=== PATIENT | female | born 1935 | race Caucasian/White ===

== ENCOUNTER 2016-05-27 20:46 | Emergency (ER) | payer MEDICARE ==
[~2016-05-27 20:46] MED LIST: LOSA50TA PO; METF1000 PO; METF500T PO; NEXI40CA PO; PARO20TA2 PO; PRED20 PO; SIMV20TA PO
[2016-05-27 20:57] VITALS: BP 187/79; PULSE 77; RESP 16; TEMP 97.9; O2SAT 97
[2016-05-27] MEDS ORDERED: MULT1TAB84 PO (22:21)
--- NOTE | 2016-05-27 23:11 | RADRPT ---
EXAM DATE/TIME: 05/27/2016 22:50 [facility] COMPARISON: SPINE CERVICAL LTD (AP&LAT), May 13, 2012, 20:54. INDICATIONS : Pain in Left heel. MEDICAL HISTORY : None. SURGICAL HISTORY : None. ENCOUNTER: Initial ACUITY: 2 days PAIN SCORE: 10/10 LOCATION: Left heel FINDINGS: Three view examination of the left foot demonstrates bony eburnation around the first metatarsal head and in the regions of the mid foot articulations. There is no acute fracture. Prominent calcaneal sp ur at the plantar aponeurosis with some calcification in the calcaneal attachment of the plantar apon eurosis as well as the Achilles tendon. A 5 mm calcific density projecting over the base of the later al metatarsals does not appear to be associated with the regional osseous structures and is probably in the adjacent soft tissues. CONCLUSION: 1. Scattered areas of bony eburnation, most prominent around the first metatarsal head. No acute frac ture. 2. Prominent calcaneal spur of the plantar aponeurosis with additional calcification at the calcaneal attachment of the plantar aponeurosis and the Achilles tendon. 3. 5 mm calcific density presumably in the adjacent soft tissues overlying the base of the lateral me tatarsals. This is well-circumscribed and overtly benign. Jim Friend MD on May 27, 2016 at 23:04 Board Certified Radiologist. This report was verified electronically.
--- NOTE | 2016-05-27 23:20 | PD ---
HPI Chief Complaint: Pain: Acute or Chronic Time Seen by Provider: 22:12 Travel History International Travel<30 days: No Contact w/Intl Traveler<30days: No Traveled to known affect area: No History of Present Illness HPI The patient is an 81 year old female who presents to the [facility] emergency department with a history of left foot pain that she reports is been present since yesterday. The patient reports that initially the pain was mild, however today the pain has been more severe and gradually worsening with time. She reports that she is unable to weight-bear on her foot. She reports that the pain is in the sole of the foot near the heel and arch. She denies having any trauma or fall. She denies having any redness or bruising. She denies having any fevers or chills. She reports that she does have some swelling in her ankles typically, however this is been better than usual recently. Of systems, the patient does report having chronic shortness of breath with exertion related to poor monetary fibrosis. She denies this being any worse than usual. She reports that she has been having difficulties with intermittent abdominal pain especially with eating. 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 She reports that later in the month air point in the stenting this artery. She denies any abdominal pain currently. The patient denies any recent fevers, cough, congestion, neck pain, chest pain, vomiting, diarrhea, urinary symptoms, or neurologic symptoms. [facility] Past Medical History Narrative Medical The patient's past medical history is significant for pulmonary fibrosis, arthritis, carpal tunnel syndrome status post carpal tunnel release, hypertension, diabetes mellitus, hyperlipidemia, acid reflux, depression. The patient has a history of colorectal cancer, history of melanoma. Arthritis: Yes Asthma: Yes Blood Disorders: No Heart Rhythm Problems: No Cancer: Yes (COLORECTAL CA (SURGERY, CHEMO, RADIATION), MELANOMA LEFT ARM(NO CHEMO/RAD)) Cardiovascular Problems: No High Cholesterol: Yes Chemotherapy: Yes (2006) Chest Pain: No Diabetes: Yes Patient Takes Glucophage: Yes (05/28/15 1000) Diminished Hearing: Yes Endocrine: Yes Gastrointestinal Disorders: Yes (ACID REFLUX, HX OF STOMACH ULCER) GERD: Yes Genitourinary: No Headaches: Yes (DUE TO NECK) Hepatitis: No Hiatal Hernia: No Hypertension: Yes Immune Disorder: No Implanted Vascular Access Dvce: Yes Musculoskeletal: Yes (ARTHRITIS, BACK/NECK PREVIOUS SURGERIES) Neurologic: Yes (NUMBNESS L ARM UP TO NECK) Psychiatric: Yes (CLAUSTROPHOBIC IN MRI) Reproductive: No Respiratory: Yes (PULMONARY FIBROSIS) Radiation Therapy: Yes (2006) Thyroid Disease: No Ulcer: Yes Tetanus Vaccination: < 5 Years Influenza Vaccination: Yes PNEUMOCCOCAL Vaccine (Year): 1 Menopausal: Yes Past Surgical History Narrative Surgical The patient's past surgical history is significant for bilateral cataract surgery, cholecystectomy, hysterectomy, right total knee replacement, skin cancer removal from the left arm, final surgery 4. Abdominal Surgery: Yes (PARTIAL COLON RESECTION 2008, CHOLECYSTECTOMY 2001) AICD: No Body Medical Devices: CERVICAL SPINE AND LOWER BACK HARDWARD, DENTAL IMPLANTS Cardiac Surgery: No Cholecystectomy: Yes Ear Surgery: No Endocrine Surgery: No Eye Surgery: Yes (JONATHAN. CATARACT EXTRACT.) Genitourinary Surgery: Yes (PARTIAL COLON RESECT.) Gynecologic Surgery: Yes (HYSTERECTOMY) Hysterectomy: Yes Joint Replacement: Yes (RIGHT KNEE) Neurologic Surgery: Yes (CERVICAL FUSION, LUMBAR DISC, SEVERAL NECK AND BACK SURGERIES) Oral Surgery: No Pacemaker: No Thoracic Surgery: No Tympanostomy Tube: Yes Other Surgery: Yes Social History Alcohol Use: Yes (OCCASIONAL) Tobacco Use: No (quit 30+years ago- cigs) Substance Use: No Allergies-Medications (Allergen,Severity, Reaction): Coded Allergies: Codeine (Verified Allergy, Severe, Nausea/Vomiting, 05/27/16) Contrast Media (Verified Allergy, Severe, HIVES, 05/27/16) Lortab (Verified Allergy, Severe, Itching, 05/27/16) Naproxen (Verified Allergy, Severe, GI UPSET, 05/27/16) *MDRO Multi-Drug Resistant Organism (Verified Allergy, Unknown, 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 Aspirin (Verified Adverse Reaction, Severe, Irritation, 05/27/16) PATIENT STATES SHE HAS ULCERS AND ASPIRIN UPSETS HER STOMACH Uncoded Allergies: AMALACTIN (Allergy, Intermediate, WHELPS, 06/23/13) Reported Meds & Prescriptions Reported Meds & Active Scripts Active Prednisone 20 Mg Tab 20 Mg PO BID 5 Days Start 02/09/16 Reported Multivitamin Adults (Multiple Vitamins W/ Minerals) 1 Tab 1 Tab PO DAILY Simvastatin 20 Mg Tab 20 Mg PO DAILY Nexium (Esomeprazole DR) 40 Mg Capdr 40 Mg PO DAILY Losartan (Losartan Potassium) 50 Mg Tab 50 Mg PO DAILY Paroxetine (Paroxetine HCl) 20 Mg Tab 20 Mg PO DAILY Metformin (Metformin HCl) 500 Mg Tab 500 Mg PO AC DINNER With meals Metformin (Metformin HCl) 1,000 Mg Tab 1,000 Mg PO DAILY With a meal Review of Systems Except as stated in HPI: all other systems reviewed are Neg General / Constitutional: No: Fever Eyes: No: Visual changes HENT: No: Headaches Cardiovascular: No: Chest Pain or Discomfort Respiratory: No: Shortness of Breath Gastrointestinal: No: Abdominal Pain Genitourinary: No: Dysuria Musculoskeletal: Positive: Arthralgias, Pain, Other (left foot pain) Skin: No Rash Neurologic: No: Weakness Psychiatric: No: Depression Endocrine: No: Polydipsia Hematologic/Lymphatic: No: Easy Bruising Physical Exam Narrative General: The patient is a well-developed well-nourished female in no acute distress. Head and Neck exam: Head is normocephalic atraumatic. Eyes: EOMI, pupils are equal round and reactive to light. Nose: Midline septum with pink mucous membranes Mouth: Dentition unremarkable. Moist mucus membranes. Posterior oropharynx is not erythematous. No tonsillar hypertrophy. Uvula midline. Airway patent. Neck: No palpable lymphadenopathy. No nuchal rigidity. No thyromegaly. Cardiovascular: Regular rate and rhythm without murmurs, gallops, or rubs. Lungs: Clear to auscultation bilaterally. No wheezes, rhonchi, or rales. Abdomen: Soft, without tenderness to palpation in all 4 quadrants of the abdomen. No guarding, rebound, or rigidity. Normal bowel sounds are audible. Extremities: No clubbing or cyanosis. The patient has trace pedal edema bilateral lower extremities along the ankles. She reports that this is improved compared to previously. 2+ pulses in all 4 extremities. The patient on examination of the area of interest, the left leg, the patient reports having tenderness on palpation along the left heel and plantar fascia with pain that worsens with stretching the toes up word, dorsiflexing the foot. There is no erythema or ecchymosis. No foot edema. She has intact sensation over all digits. Less than 3 second capillary refill. The patient has no pain on palpation of the left knee. With internal and external rotation of low left hip, the patient reports increased pain along the lateral aspect of the left hip. She reports that she does have chronic pain in her knees and hips, however this is slightly worse than usual. Back: No spinous process tenderness to palpation. No costovertebral angle tenderness to palpation. Neurologic Exam: Grossly nonfocal. Skin Exam: No rash noted. Intact skin that is warm and dry. Data Data Last Documented VS Vital Signs Date Time Temp Pulse Resp B/P Pulse Ox O2 Delivery O2 Flow Rate FiO2 05/27/16 23:36 62 18 174/74 99 Room Air 05/27/16 20:57 97.9 Orders Foot, Complete ([id number]) (05/27/16 22:38) Hip, Uni(Ap&Lat) W Ap Pelvis (05/27/16 23:17) Ice/Cold Pack (05/27/16 23:17) Tramadol (Ultram) (05/27/16 23:30) MDM Medical Decision Making Medical Screen Exam Complete: Yes Emergency Medical Condition: Yes Medical Record Reviewed: Yes Interpretation(s) Last Impressions Foot X-Ray 05/27/162237 Signed Impressions: Service Date/Time: Friday, May 27, 2016 22:50 - CONCLUSION: 1. Scattered areas of bony eburnation, most prominent around the first metatarsal head. No acute fracture. 2. Prominent calcaneal spur of the plantar aponeurosis with additional calcification at the calcaneal attachment of the plantar aponeurosis and the Achilles tendon. 3. 5 mm calcific density presumably in the adjacent soft tissues overlying the base of the lateral metatarsals. This is well-circumscribed and overtly benign. Jim Friend MD Differential Diagnosis Plantar fasciitis, versus heel spur, versus cellulitis, versus fracture Narrative Course During the course of the patients emergency department visit, the patients history, examination, and differential diagnosis were reviewed with the patient. The patient had an x-ray of the left foot, left hip and pelvis. The patient was given tramadol for pain. She reports that she has tolerated this well in the past. The patient reports that Tylenol at home was not helping. The patient was given an ice pack to decrease inflammation in the area. Radiology studies were reviewed and remarkable for a left hip x-ray that shows no acute abnormality other than degenerative changes. Left foot x-ray shows a large heel spur, evidence of degenerative changes, no acute fracture or abnormality otherwise. The patient was given a copy of her left foot x-ray findings. She was instructed to follow-up with her primary care physician as soon as possible regarding her symptoms for referral to physical therapy for additional treatment. She was instructed on rest, ice, stretching, and elevation of the area. The patient will be given a prescription for prednisone at discharge. Unfortunately, tramadol interacts with her home medications, therefore this will not be continued for outpatient treatment of her pain. The patient is resting comfortably and feels better, is alert and in no distress. The patients results and examination findings were discussed with the patient. The repeat examination is unremarkable and benign. The history, exam, diagnostic testing, and current condition do not suggest any significant pathology to warrant further testing, continued ED treatment, admission, or surgical evaluation at this point. The vital signs have been stable. The patient does not have uncontrollable pain, intractable vomiting, or other significant symptoms. The patient's condition is stable and appropriate for discharge. The patient will pursue further outpatient evaluation with a primary care physician or other designated or consulting physician as indicated in the discharge instructions. The patient expressed understanding and was agreeable with this plan. Diagnosis Primary Impression: Plantar fasciitis of left foot Additional Impressions: Heel spur Qualified Code: M77.32 - Heel spur, left Left foot pain Referrals: Sharron Kulkarni Jr., MD 2 days Patient Instructions: General Instructions, Plantar Fasciitis (ED) Med/Other Pt SpecificInfo: Prescription(s) given Scripts Prednisone 20 Mg Tab20 Mg PO BID 5 Days Ref 0 Start 02/09/16 Prov:Brianna Rodriguez MD 05/27/16 Disposition: 01 DISCHARGE HOME Condition: Stable Brianna Rodriguez MD May 27, 2016 23:20
[2016-05-27] MEDS ORDERED: traMADol HCL 50 MG TAB PO ONE (23:30)
[2016-05-27 23:36] VITALS: BP 174/74; PULSE 62; RESP 18; O2SAT 99
--- NOTE | 2016-05-27 23:50 | RADRPT ---
EXAM DATE/TIME: 05/27/2016 23:26 [facility] COMPARISON: No previous studies available for comparison. INDICATIONS : Left hip pain. MEDICAL HISTORY : SURGICAL HISTORY : None. ENCOUNTER: Initial ACUITY: 2 days PAIN SCORE: 0/10 LOCATION: Left hip FINDINGS: Examination of the left hip was performed with AP Pelvis. The primary and secondary trabecular patte rn of the femoral neck is intact. Osteoarthritic changes in both hips with some marginal spurring off the femoral head. Bony eburnation off the ischium and greater trochanter. Some scattered atheroscler otic calcification of the regional vasculature. CONCLUSION: 1. Degenerative osteoarthritic changes of the left hip. 2. No acute fracture.. Jim Friend MD on May 27, 2016 at 23:47 Board Certified Radiologist. This report was verified electronically.
[2016-05-27] MEDS ORDERED: PRED20 PO (23:54)
== END 2016-05-28 00:33 | disposition home or self-care (01) ==
LOC: NEPC 20:46
DX: M72.2 Plantar fascial fibromatosis (principal); M77.32 Calcaneal spur, left foot; J45.909 Unspecified asthma, uncomplicated; E78.00 Pure hypercholesterolemia, unspecified; E11.9 Type 2 diabetes mellitus without complications; K21.9 Gastro-esophageal reflux disease without esophagitis; I10 Essential (primary) hypertension; Z87.891 Personal history of nicotine dependence
CPT/HCPCS: 73502; 73630; 99283

== ENCOUNTER → 2016-06-02 | Outpatient (CLI) | payer MEDICARE ==
[~2016-06-02] MED LIST changes: +MULT1TAB84 PO; +PLAV75TA29 PO; +TRAM50TA PO
[2016-06-02 13:34] LABS: HEMATOCRIT 38.5 % (35.0-46.0); MEAN CORPUSCULAR HEMOGLOBIN 31.1 PG (27.0-34.0); MEAN CORPUSCULAR HGB CONC 33.8 % (32.0-36.0); PLATELET COUNT 341 TH/MM3 (150-450); RED BLOOD COUNT 4.19 MIL/MM3 (4.00-5.30); REVIEW FLAG FINAL; WHITE BLOOD COUNT 8.7 TH/MM3 (4.0-11.0)
[2016-06-02 13:43] LABS: PROTHROMBIN TIME - PATIENT 10.8 SEC (9.8-11.6)
[2016-06-02 13:45] LABS: BLOOD, URINE NEG (NEG); COMMENT (UR) CULTURE INDICATED; CULTURE IF INDICATED CULTURE INDICATED; GLUCOSE,URINE NEG (NEG); KETONE, URINE NEG (NEG); MUCUS URINE FEW /lpf (OCC); NITRITE,URINE NEG (NEG); PH, URINE 5.5 (5.0-8.5); SQUAMOUS EPITHELIAL CELL URINE 1 /hpf (0-5); URINE COLOR YELLOW (YELLW/STRAW)
[2016-06-02 13:56] LABS: BICARBONATE 28.2 MEQ/L (21.0-32.0); POTASSIUM 4.2 MEQ/L (3.5-5.1)
--- NOTE | 2016-06-02 15:00 | RADRPT ---
EXAM DATE/TIME: 06/02/2016 14:18 [facility] COMPARISON: CHEST PA & LAT, May 17, 2012, 11:17. INDICATIONS : Evaluate for communicable disease, Pneumonia, Pneumothorax, Preop Abdominal Surgery MEDICAL HISTORY : Pulmonary fibrosis SURGICAL HISTORY : None. ENCOUNTER: Initial ACUITY: 1 day PAIN SCORE: 0/10 LOCATION: Bilateral chest FINDINGS: The heart is minimally enlarged. Coarse interstitial changes are present in both lungs. The lungs a re moderately hyperinflated. Degenerative changes are present in the thoracic spine. CONCLUSION: Interval improvement when compared to the most recent comparison study. However, coarse interstitial changes are present in both lungs suggesting chronic fibrosis. Marco A Cedillo MD FACR on June 02, 2016 at 14:55 Board Certified Radiologist. This report was verified electronically.
--- NOTE | 2016-06-03 15:01 | EKG ---
Date Performed: 06/02/2016 Time Performed: 13:22:59 PTAGE: 81 years EKG: SINUS BRADYCARDIA POSSIBLE LEFT ATRIAL ENLARGEMENT Compared to prior tracing no significant change BORDERLINE ECG PREVIOUS TRACING 07/10/2014 @ 16.35.48 DOCTOR: Primitivo Edge Interpretating Date/Time 06/03/2016 14:58:15
== END ==
LOC: CPRE 12:39
PROVIDERS: ATTEND Surgery
DX: I77.1 Stricture of artery (principal); B96.89 Other specified bacterial agents as the cause of diseases classified elsewhere; R94.31 Abnormal electrocardiogram [ECG] [EKG]
CPT/HCPCS: 36415; 71020; 80048; 81001; 85027; 85610; 87086; 93005

== ENCOUNTER 2016-06-09 06:48 | Observation (INO) | payer MEDICARE ==
[2016-06-09] VITALS (11 sets, daily range): BP systolic 110–153; BP diastolic 54–69; PULSE 53–76; RESP 12–20; TEMP 97.8–98.3; O2SAT 95–100
[~2016-06-09] VITALS: Ht 165.1 cm; Wt 65.5 kg
[~2016-06-09 06:48] MED LIST changes: -PLAV75TA29 PO; -TRAM50TA PO
[2016-06-09] MEDS ORDERED: METOPROLOL TARTRATE 25 MG TAB PO PRN (07:45)
[2016-06-09] MEDS ORDERED: INSULIN HUMAN REGULAR 1,000 UNITS/10 ML VIAL SQ PRN (07:45)
[2016-06-09] MEDS ORDERED: POVIDONE IODINE 7.5% SCRUB 118 ML BOTTLE TOP SCH (08:00)
[2016-06-09] MEDS ORDERED: CHLORHEXIDINE GLUCONATE 4% SOLN 120 ML BTL TOP SCH (08:00)
[2016-06-09] MEDS ORDERED: SODIUM CHLORID 0.9% 500 ML IV SCH (08:00)
[2016-06-09] MEDS ORDERED: CHLORHEXIDINE GLUCONATE 2 % 1 PACK (2 CLOTHS) TOP ONE (08:00)
[2016-06-09 08:12] LABS: BACTERIA, URINE OCC /hpf; BLOOD, URINE NEG (NEG); COMMENT (UR) CULTURE INDICATED; CULTURE IF INDICATED CULTURE INDICATED; GLUCOSE,URINE NEG (NEG); HYALINE CAST, URINE 1 /lpf (RARE); KETONE, URINE NEG (NEG); MUCUS URINE FEW /lpf (OCC); NITRITE,URINE NEG (NEG); SQUAMOUS EPITHELIAL CELL URINE 1 /hpf (0-5); URINE COLOR YELLOW (YELLW/STRAW)
[2016-06-09] MEDS: LACTATED RINGER'S 1000 ML IV SCH (08:30)
--- NOTE | 2016-06-09 10:58 | PD.VS.PN ---
Pre-operative Note Pre-operative diagnosis: chronic mesenteric ischemia Planned procedure: mesenteric angiogram, possible stent via LEFT brachial cutdown Interval History: No changes since I saw her last - specifically, no fevers, chills or change in abdominal pain Labs: Hct 38 plt 341 creatinine 1.3 INR 1.0 Blood: none needed Imaging: CT reviewed - celiac patent; SMA stenotic Orders: NPO Cipro OCTOR Solumedrol OCTOR Post-operative destination: PACU and overnight observation Operative site marked: Yes Consent: Informed consent has been obtained from Joyce Mayer. I have explained the procedure in detail and discussed the risks, benefits, and potential complications. All questions have been answered. Patient contact information: Friend - Ms. Stinson [phone] Med Holman MD Jun 09, 2016 10:58
[2016-06-09] MEDS ORDERED: MIDAZOLAM HCL 2 MG/2 ML VIAL ONE (11:29)
[2016-06-09] MEDS ORDERED: FAMOTIDINE 20 MG/2 ML VIAL ONE (11:29)
[2016-06-09] MEDS ORDERED: HEPARIN SODIUM - IV 10,000 UNITS/10 ML VIAL ONE (11:40)
[2016-06-09] MEDS ORDERED: HEPARIN SODIUM - SQ 10,000 UNITS/ML VIAL ONE (11:40)
[2016-06-09] MEDS ORDERED: methylPREDNISolone SOD SUCC 125 MG/2 ML VIAL ONE (11:40)
[2016-06-09] MEDS ORDERED: PROTAMINE SULFATE 50 MG/5 ML VIAL ONE (11:40)
[2016-06-09] MEDS ORDERED: CIPROFLOXACIN 400 MG PREMIX 200 ML ONE (11:59)
[2016-06-09] MEDS ORDERED: PROPOFOL 200 MG/20 ML AMP IV ONE (12:00)
[2016-06-09] MEDS ORDERED: methylPREDNISolone SOD SUCC 125 MG/2 ML VIAL IV ONE (12:00)
[2016-06-09] MEDS ORDERED: ePHEDrine/NS 25 MG/5 ML SYR IV ONE (12:00)
[2016-06-09] MEDS ORDERED: LACTATED RINGER'S 1000 ML INJ 1,000 ML IV ONE (12:00)
[2016-06-09] MEDS ORDERED: NEOSTIGMINE 3 MG/3 ML SYR IV ONE (12:00)
[2016-06-09] MEDS ORDERED: diphenhydrAMINE HCL 50 MG/ML VIAL ONE (12:15)
[2016-06-09] MEDS ORDERED: BUPIVACAINE HCL PF 0.25% 30 ML VIAL ONE (12:39)
[2016-06-09] MEDS ORDERED: IOHEXOL 300 MG/ML 50 ML BTL (for RAD DIAG) OTHER ONE (12:47)
--- NOTE | 2016-06-09 13:45 | HHI.PR ---
Immediate Post Op Note Procedure Date: Jun 09, 2016 Pre Op Diagnosis: Chronic mesenteric ischemia Post Op Diagnosis: Chronic mesenteric ischemia Surgeon: Med Holman Photographic Processor(s): none Procedure: Mesenteric angiogram SMA stent (7x22 iCAST) Findings: SMA stenosis, successful stent Additional Information: L brachial exposure, strong L radial Doppler signal post-procedure Complications: none apparent Specimen(s) removed: none Estimated blood loss: 10 mL Anesthesia: General Drains: None Fluids: 300 mL IVF Patient to: PACU Patient Condition: Good Implant/Devices: SEE IMPLANT LOG (if applicable) Date/Time of Procedure: SEE SURGICAL CARE RECORD Med Holman MD Jun 09, 2016 13:45
[2016-06-09] MEDS ORDERED: DO NOT ADM ANY ANTICOAGULANT DRUGS XX PRN (13:50)
[2016-06-09] MEDS ORDERED: CLOPIDOGREL 75 MG TAB PO ONE (14:00)
[2016-06-09] MEDS ORDERED: fentaNYL CITRATE 250 MCG/5 ML AMP ONE (14:07)
--- NOTE | 2016-06-09 15:53 | PD.VS.PN ---
Subjective POD #: 0 Procedure(s): SMA stent Subjective/Hospital Course resting comfortably, no complaints, easily arousable Objective Vitals/I&O Date Time Temp Pulse Resp B/P Pulse Ox O2 Delivery O2 Flow Rate FiO2 06/09/16 15:13 100 Nasal Cannula 1.00 06/09/16 15:06 97.8 53 12 153/69 100 06/09/16 15:00 58 06/09/16 14:15 55 23 158/74 99 Nasal Cannula 3 06/09/16 14:00 60 23 157/74 100 Nasal Cannula 3 06/09/16 13:57 97.8 58 23 158/73 94 Nasal Cannula 3 06/09/16 08:06 97.9 65 20 133/62 98 06/09/16 06/09/16 06/09/16 07:00 15:00 23:00 Intake Total 300 ml Output Total 10 ml Balance 290 ml Exam: L UE incision c/d/i with minimal ecchymosis Pulses: palpable radial pulse Laboratory Laboratory Tests Test 06/09/16 07:40 Urine Color YELLOW Urine Turbidity HAZY Urine pH 6.0 Urine Specific [place] 1.012 Urine Protein TRACE Urine Glucose (UA) NEG Urine Ketones NEG Urine Occult Blood NEG Urine Nitrite NEG Urine Bilirubin NEG Urine Urobilinogen LESS THAN 2.0 Urine Leukocyte Esterase LARGE Urine RBC 1 Urine WBC 147 Urine Squamous Epithelial 1 Cells Urine Bacteria OCC Urine Hyaline Casts 1 Urine Mucus FEW Microscopic Urinalysis Comment CULTURE INDICATED Blood Type O POSITIVE Antibody Screen NEGATIVE Date/Time Procedure Status Source Growth 06/09/16 07:40 Urine Culture Received Urine Clean Catch Pending Assessment and Plan Plan observation overnight reg diet activity ad alka plavix load (150mg) Discharge Planning anticipate home tomorrow on reg medications plus plavix Med Holman MD Jun 09, 2016 15:53
[2016-06-09] MEDS ORDERED: metFORMIN HCL 500 MG TAB PO SCH (16:00)
[2016-06-10] VITALS (13 sets, daily range): BP systolic 131–135; BP diastolic 55–66; PULSE 52–80; RESP 16; TEMP 97.6–97.8; O2SAT 99
[2016-06-10] MEDS: LACTATED RINGER'S 1000 ML IV SCH (08:00)
[2016-06-10] MEDS ORDERED: PLAV75TA29 PO (08:48)
[2016-06-10] MEDS ORDERED: MULTIVITAMINS/MINERALS THERAPEUTIC TAB PO SCH (09:00)
[2016-06-10] MEDS ORDERED: LOSARTAN 50 MG TAB PO SCH (09:00)
[2016-06-10] MEDS ORDERED: PANTOPRAZOLE SOD 40 MG DELAYED RELEASE TAB PO SCH (09:00)
[2016-06-10] MEDS ORDERED: PARoxetine HCL 20 MG TAB PO SCH (09:00)
[2016-06-10] MEDS ORDERED: PRAVASTATIN SOD 40 MG TAB PO SCH (09:00)
[2016-06-10] MEDS ORDERED: metFORMIN HCL 500 MG TAB PO SCH (09:00)
--- NOTE | 2016-06-10 09:08 | PD.VS.DC ---
Discharge Summary Admission Date: Jun 09, 2016 at 13:48 Discharge Date: Jun 10, 2016 Admission Diagnosis: (1) Mesenteric artery insufficiency Discharge Diagnosis: (1) Mesenteric artery insufficiency Status: Chronic Brief History from admission Pt was admitted yesterday for stent placement of the mesenteric artery Procedure(s): SMA stent Significant Findings GENERAL: A&OX3, NAD, pleasant 83/F SKIN: Warm and dry. incision to left upper arm intact with surgical glue covering, NO redness, warmth, drainage or swelling noted, slight bruising noted near incision line CARDIOVASCULAR: +S1,S2 RESPIRATORY: Breath sounds equal bilaterally. No accessory muscle use. GASTROINTESTINAL: Abdomen soft, non-tender, nondistended Strong Palpable Bilat radial, DP Laboratory Tests Test 06/09/16 07:40 Urine Turbidity HAZY (CLEAR) Urine Leukocyte Esterase LARGE (NEG) Urine WBC 147 /hpf (0-5) Urine Bacteria OCC /hpf (NONE) Urine Mucus FEW /lpf (OCC) Hospital Course: Pt was admitted for SMA placement and was monitored overnight. Pt reported no complications and stated she has had D/B without complaints. Will continue to follow-up will pt in our OPC Allergies Coded Allergies Type Severity Reaction Last Updated Verified Codeine Allergy Severe Nausea/Vomiting 06/02/16 Yes Contrast Media Allergy Severe HIVES 06/02/16 Yes Lortab Allergy Severe Itching 06/02/16 Yes Naproxen Allergy Severe GI UPSET 06/02/16 Yes *MDRO Multi-Drug Resistant Organism Allergy Unknown 06/02/16 Yes Aspirin Adverse Reaction Severe Irritation 06/02/16 Yes Uncoded Allergies Type Severity Reaction Last Updated Verified AMALACTIN Allergy Intermediate WHELPS /06/03 06/08/173/19/173/20/173/20/173/21// 06:00 18:00 06:00 18:00 06:00 18:00 Intake Total 540 ml 240 ml Output Total 10 ml 350 ml Balance 530 ml -110 ml Intake Oral 240 ml 240 ml Other 300 ml Output Urine Total 350 ml Estimated Blood Loss 10 ml Other 0 ml # Voids 0 # Bowel Movements 0 Laboratory Tests Test 06/09/16 07:40 Urine Color YELLOW Urine Turbidity HAZY Urine pH 6.0 Urine Specific [place] 1.012 Urine Protein TRACE mg/dL Urine Glucose (UA) NEG mg/dL Urine Ketones NEG mg/dL Urine Occult Blood NEG Urine Nitrite NEG Urine Bilirubin NEG Urine Urobilinogen LESS THAN 2.0 MG/DL Urine Leukocyte Esterase LARGE Urine RBC 1 /hpf Urine WBC 147 /hpf Urine Squamous Epithelial 1 /hpf Cells Urine Bacteria OCC /hpf Urine Hyaline Casts 1 /lpf Urine Mucus FEW /lpf Microscopic Urinalysis Comment CULTURE INDICATED Blood Type O POSITIVE Antibody Screen NEGATIVE Procedure Category Date Status Time Urinalysis - C+S If LAB 06/09/16 Complete Indicated 07:14 Type And Screen BBK 06/09/16 Complete 07:14 Lactated Ringer's MED 06/09/16 In Process 1000 Ml Inj (Lr 1000 M 08:00 Sodium Chlorid 0.9% MED 06/09/16 Complete 500 Ml Inj (Ns 500 M 08:00 Insulin Human Regular MED 06/09/16 Complete Inj (Novolin R Inj 07:45 Metoprolol Tartrate MED 06/09/16 Complete (Lopressor) 07:45 Povidone Iodine 7.5% MED 06/09/16 In Process Scrub (Betadine 7.5 08:00 Chlorhexidine 4% Top MED 06/09/16 Complete Soln (Hibiclens 4% 08:00 Chlorhexidine 2% MED 06/09/16 Complete Cloth (Chlorhexidine 08:00 Urine Culture SURYA 06/09/16 In Process 07:40 Famotidine Inj MED 06/09/16 Complete (Pepcid Inj) 11:29 Midazolam Inj (Versed MED 06/09/16 Complete Inj) 11:29 Heparin Inj (Heparin MED 06/09/16 Complete Inj) 11:40 Heparin Inj (Heparin MED 06/09/16 Complete Inj) 11:40 Protamine Sulfate Inj MED 06/09/16 Complete (Protamine Sulfate 11:40 Methylprednisolone So MED 06/09/16 Complete Succ Inj (Solumedr 11:40 Ciprofloxacin 400 Mg MED 06/09/16 Complete Premix (Cipro 400 M 11:59 Diphenhydramine Inj MED 06/09/16 Complete (Benadryl Inj) 12:15 Bupivacaine Pf 0.25% MED 06/09/16 Complete Inj (Marcaine Pf 0. 12:39 Iohexol 300 Inj MED 06/09/16 Complete (Omnipaque 300 Inj) 12:47 Place In Observation ADMITTING 06/09/16 Transmitted Code Status CODE 06/09/16 Transmitted 13:46 Vital Signs (Adult) HALLEY 06/09/16 In Process 13:46 Activity Oob Ad Shae HALLEY 06/09/16 In Process 13:46 ^ Notify Dr. ROWLEY 06/09/16 In Process Parameters 13:46 Diet Heart Healthy DIET 06/09/16 Transmitted Lunch Clopidogrel (Plavix) MED 06/11/16 In Process 09:00 Clopidogrel (Plavix) MED 06/09/16 Complete 14:00 Losartan (Cozaar) MED 06/10/16 In Process 09:00 Metformin (Glucophage) MED 06/10/16 In Process 09:00 Metformin (Glucophage) MED 06/09/16 In Process 16:00 Multivitamins-Minerals MED 06/10/16 In Process Therap (Theragran 09:00 Paroxetine (Paxil) MED 06/10/16 In Process 09:00 Pantoprazole MED 06/10/16 In Process (Protonix) 09:00 Pravastatin MED 06/10/16 In Process (Pravachol) 09:00 Fentanyl Inj MED 06/09/16 Complete (Fentanyl Inj) 14:07 Enoxaparin Inj MED 06/10/16 In Process (Lovenox Inj) 13:00 [facility] 06[facility]16 In Process Information 13:50 Class V Pacu Ea 30 Min [facility] Complete General/Pacu [facility] 06/09/16 Complete Post Anesthesia [facility]xygen [facility] 06/09/16 Complete Sds Pre Op Care [facility] 06/09/16 Complete ^ Anticoagulant Alert HALLEY 06/10/16 In Process ^ Sling HALLEY 06/10/16 In Process Resp Oxygen Zachary C RSP 06/10/16 Logged Titrat 1-4 L Attending Discharge DISCHARGE 06/10/16 Transmitted Order Vital Signs Date Time Temp Pulse Resp B/P Pulse Ox O2 Delivery O2 Flow Rate FiO2 06/10/16 08:32 99 Room Air 06/10/16 08:32 97.6 66 16 131/66 99 06/10/16 08:32 58 06/10/16 07:30 97.6 68 16 131/66 99 06/10/16 06:00 59 06/10/16 05:06 59 06/10/16 04:11 56 06/10/16 03:30 97.8 76 16 135/55 99 06/10/16 03:05 56 06/10/16 02:36 56 06/10/16 01:00 57 06/10/16 00:36 52 06/09/16 23:06 98.3 57 16 110/54 99 06/09/16 23:06 62 06/09/16 22:00 59 06/09/16 21:00 54 06/09/16 20:00 62 06/09/16 19:45 Room Air 06/09/16 19:45 98.1 61 18 116/63 95 06/09/16 19:00 76 06/09/16 17:00 56 06/09/16 16:00 60 06/09/16 15:13 100 Nasal Cannula 1.00 06/09/16 15:06 97.8 53 12 153/69 100 06/09/16 15:00 58 06/09/16 14:15 55 23 158/74 99 Nasal Cannula 3 06/09/16 14:00 60 23 157/74 100 Nasal Cannula 3 06/09/16 13:57 97.8 58 23 158/73 94 Nasal Cannula 3 06/09/16 08:06 97.9 65 20 133/62 98 Discharge Condition: Good Discharge Disposition: Discharge Home Discharge Instructions: Follow-up in 1M in our OPC at scheduled appt time 07/11/16 Leave incision to LUE open to air Do not apply any ointments or creams to incision site Call the office with any questions or concerns Cristiana VARGAS [facility] [phone] Any questions or concerns: Call [facility] Heart and Vascular Surgery at [facility] [phone] Cristiana Dominique Jun 10, 2016 09:08
[2016-06-10] MEDS ORDERED: ENOXAPARIN SODIUM 40 MG/0.4 ML SYRINGE SQ SCH (13:00)
[2016-06-11] MEDS ORDERED: CLOPIDOGREL 75 MG TAB PO SCH (09:00)
--- NOTE | 2016-06-11 10:02 | MP ---
cc: RIN HOLMAN MD DATE OF SURGERY 06/09/16 PREOPERATIVE DIAGNOSIS Mesenteric ischemia, chronic. POSTOPERATIVE DIAGNOSIS Mesenteric ischemia, chronic. PROCEDURE 1. Mesenteric angiogram with selective catheterization of SMA. 2. SMA stent with a 7 x 22 iCast ATTENDING SURGEON Viviana Holman MD PROFESSIONAL SYSTEM ADMINISTRATOR None. ANESTHESIA General INDICATIONS Ms. Cooley is an 81 year old female with mesenteric ischemia that is chronic in nature. She has post prandial abdominal pain and CT scan suggestive of a mesenteric stenosis. She is taken to the operating room for angiographic evaluation and treatment. There is no prior catheter based imaging available for my review. PROCEDURE IN DETAIL Informed consent was obtained with the patient and she was taken to the operating room and placed supine on the operating room table and appropriate time out was taken to ensure the patient identity, operative site and planned procedure. 400 mg of intravenous ciprofloxacin were administered prior to skin incision, will be discontinue after single preoperative dose. Ciprofloxacin was chosen because of the patient's concomitant urinary tract infection which was new although asymptomatic. Everyone in the room agreed with the time-out and we proceeded. Her left arm was prepped and draped. An incision was made over the antecubital and carried down through the subcutaneous tissue with electrocautery. The brachial artery was identified and encircled with vessel loop. The patient was systemically heparinized with 3000 units of IV heparin. A micropuncture needle was used to access the brachial artery which was exchanged using Seldinger technique through a micropuncture sheath for which a 0.025 Glidewire was introduced. The micropuncture sheath was exchanged for 5 Portuguese sheath and a pigtail was placed over the wire into the sheath, then using the pigtail catheter and glide wire, we were able to navigate down to the perivisceral aorta. A lateral aortogram was obtained. The patient was administered 3000 additional units of IV heparin. A Green wire was then introduced. The pigtail and 5 Portuguese sheath were removed and a 7 Portuguese 70 cm sheath was introduced and an MPA catheter was placed over the Green and through the sheath. The Green was exchanged for a glide wire and this was used to navigate into the SMA and then catheter was advanced this and angiogram confirmed we were indeed in the SMA. A Green was then reintroduced and the MPA catheter was removed. A 7 x 22 [employer] iCast was then introduced and angiography was performed and the stent was deployed without difficulty. Completion angiogram showed only a 10 to 20% residual stenosis but not felt to be hemodynamically significant. The wire, catheter and sheath were removed. The brachial arteriotomy was closed with 6-0 Prolene suture. The wound was irrigated with copious amounts of saline. There was a nice palpable pulse at the wrist and the wound was infiltrated with Marcaine and closed with 2-0 Polysorb, 3-0 Polysorb and 4-0 Monocryl. Sponge and needle counts correct at the end of the case. I was present and scrubbed for entire procedure. MD MASTER De Jesus/ /3:58 PM /9:52 AM
== END 2016-06-10 09:56 | disposition home or self-care (01) ==
LOC: HCVO 06:48 → HSDI 13:48 → HCIN 15:00
PROVIDERS: ADMIT Surgery; ATTEND Surgery
DX: K55.1 Chronic vascular disorders of intestine (principal)
CPT/HCPCS: 01916; 36245; 37236; 75710; 81001; 86850; 86900; 86901; 87086; C1769; C1876; G0378; J0744; J1200; J1644; J2250; J2710; J2720; J2930; J3010; J7120; Q9967

== ENCOUNTER 2016-07-16 17:13 | Emergency (ER) | payer MEDICARE ==
[~2016-07-16] VITALS: Ht 165.1 cm; Wt 63.7 kg
[~2016-07-16 17:13] MED LIST changes: +PLAV75TA29 PO; -PRED20 PO
[2016-07-16 17:17] VITALS: BP 124/62; PULSE 78; RESP 18; TEMP 97.9; O2SAT 94
[2016-07-16] MEDS ORDERED: TRAM50TA PO (17:59)
--- NOTE | 2016-07-16 17:59 | PD ---
HPI Chief Complaint: Musculoskeletal Complaint Time Seen by Provider: 17:40 Travel History International Travel<30 days: No Contact w/Intl Traveler<30days: No Traveled to known affect area: No History of Present Illness HPI Patient is an 81-year-old female presenting to emergency department for evaluation of right arm pain. Patient's pain started on Thursday, there was no injury or trauma. Patient states her pain starts in her shoulder and radiates down her arm. She denies any chest pain, and headache, shortness of breath, back pain. Patient has a history of chronic neck pain, cervical stenosis. She reports taking tramadol which works for her but is out of her medication. Patient is followed by Dr. Sharron Olmstead. She reports the pain is a 4 out of 10 and describes as aching and sore. Patient denies any numbness, tingling, weakness. She is accompanied by her family member who does report that she is a reliable historian. 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)) Cardiovascular Problems: No High Cholesterol: Yes Chemotherapy: Yes (2006) Chest Pain: No Diabetes: Yes Patient Takes Glucophage: Yes Diminished Hearing: Yes Endocrine: Yes Gastrointestinal Disorders: Yes (ACID REFLUX, HX OF STOMACH ULCER) GERD: Yes Genitourinary: No Headaches: Yes (DUE TO NECK) Hepatitis: No Hiatal Hernia: No Hypertension: Yes Immune Disorder: No Implanted Vascular Access Dvce: Yes Medical other: No Musculoskeletal: Yes (ARTHRITIS, BACK/NECK PREVIOUS SURGERIES) Neurologic: Yes (NUMBNESS L ARM UP TO NECK) Psychiatric: Yes (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 CATARACT EXTRACT.) Genitourinary Surgery: Yes (PARTIAL COLON RESECT.) Gynecologic Surgery: Yes (HYSTERECTOMY) Hysterectomy: Yes Joint Replacement: Yes (RIGHT KNEE) Neurologic Surgery: Yes (CERVICAL FUSION, LUMBAR DISC, SEVERAL NECK AND BACK SURGERIES) Oral Surgery: No Pacemaker: No Thoracic Surgery: No Tympanostomy Tube: Yes Other Surgery: Yes Social History Alcohol Use: Yes (OCCASIONAL) Tobacco Use: No (quit 30+years ago- cigs) Substance Use: No Allergies-Medications (Allergen,Severity, Reaction): Coded Allergies: Codeine (Verified Allergy, Severe, Nausea/Vomiting, 07/16/16) Contrast Media (Verified Allergy, Severe, HIVES, 07/16/16) Lortab (Verified Allergy, Severe, Itching, 07/16/16) Naproxen (Verified Allergy, Severe, GI UPSET, 07/16/16) Aspirin (Verified Adverse Reaction, Severe, Irritation, 07/16/16) PATIENT STATES SHE HAS ULCERS AND ASPIRIN UPSETS HER STOMACH *MDRO Multi-Drug Resistant Organism (Verified Adverse Reaction, Unknown, ) 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 Uncoded Allergies: AMALACTIN (Allergy, Intermediate, WHELPS, 06/23/13) Reported Meds & Prescriptions Reported Meds & Active Scripts Active Reported Multivitamin Adults (Multiple Vitamins W/ Minerals) 1 Tab 1 Tab PO DAILY Simvastatin 20 Mg Tab 20 Mg PO DAILY Nexium (Esomeprazole DR) 40 Mg Capdr 40 Mg PO DAILY Losartan (Losartan Potassium) 50 Mg Tab 50 Mg PO DAILY Paroxetine (Paroxetine HCl) 20 Mg Tab 20 Mg PO DAILY Metformin (Metformin HCl) 500 Mg Tab 500 Mg PO AC DINNER With meals Metformin (Metformin HCl) 1,000 Mg Tab 1,000 Mg PO DAILY With a meal Review of Systems Except as stated in HPI: all other systems reviewed are Neg Musculoskeletal: Positive: Myalgias, Arthralgias Physical Exam Narrative GENERAL: Well-nourished, well-developed patient. SKIN: Focused skin assessment warm/dry. HEAD: Normocephalic. EYES: No scleral icterus. No injection or drainage. NECK: Supple, trachea midline. No JVD or lymphadenopathy. CARDIOVASCULAR: Regular rate and rhythm without murmurs, gallops, or rubs. RESPIRATORY: Breath sounds equal bilaterally. No accessory muscle use. GASTROINTESTINAL: Abdomen soft, non-tender, nondistended. MUSCULOSKELETAL: No cyanosis, or edema. No obvious deformity noted, positive radial pulse, brisk within 3 second capillary refill. Tenderness to palpation in right paraspinal musculature in the cervical region. 5/5 muscle strength in bilateral upper extremities. BACK: Nontender without obvious deformity. No CVA tenderness. Data Data Last Documented VS Vital Signs Date Time Temp Pulse Resp B/P Pulse Ox O2 Delivery O2 Flow Rate FiO2 07/16/16 17:17 97.9 78 18 124/62 94 [facility] Medical Decision Making Medical Screen Exam Complete: Yes Emergency Medical Condition: Yes Interpretation(s) Vital Signs Date Time Temp Pulse Resp B/P Pulse Ox O2 Delivery O2 Flow Rate FiO2 07/16/16 17:17 97.9 78 18 124/62 94 Differential Diagnosis Sprain versus strain versus fracture versus dislocation versus discogenic pain versus other Narrative Course Patient is an 81-year-old female presenting to the emergency department for evaluation of right arm pain, there was no defining injury or trauma. Patient is a reliable historian and there is no complaint of chest pain, shortness of breath, dizziness. Vital signs are stable. She normally takes tramadol for pain but is out of it. Patient will be provided with a prescription for tramadol, discussed with my attending physician who was in agreement. Patient will follow-up with her primary doctor for ongoing evaluation and management. Patient and family verbalized understanding of instructions, they were encouraged to return to emergency department for any new or worsening symptoms. Patient stable for discharge. Diagnosis Primary Impression: Neck pain, musculoskeletal Additional Impression: Arm pain, musculoskeletal Qualified Code: M79.601 - Arm pain, musculoskeletal, right Referrals: Sharron Kulkarni Jr., MD 2 days Patient Instructions: General Instructions, Muscle Strain (ED) Additional Instructions: Follow-up with her primary doctor Take medications as directed Continue range of motion exercises, apply warm moist heat to the affected area, avoid exacerbating activities Return to emergency department for any new or worsening symptoms Med/Other Pt SpecificInfo: Prescription(s) given Scripts Tramadol 50 Mg Tab50 Mg PO Q6H PRN (PAIN) #10 TAB Ref 0 Prov:Med Erazo MD 07/16/16 Disposition: 01 DISCHARGE HOME Condition: Stable LennyLyndsey chandraRaegan NEEDLE LOOM WEAVER Jul 16, 2016 17:59
== END 2016-07-16 18:07 | disposition home or self-care (01) ==
LOC: PHEFT 17:13
DX: M54.2 Cervicalgia (principal); M79.601 Pain in right arm; E11.9 Type 2 diabetes mellitus without complications; I10 Essential (primary) hypertension; E78.00 Pure hypercholesterolemia, unspecified; H91.90 Unspecified hearing loss, unspecified ear; Z79.84 Long term (current) use of oral hypoglycemic drugs; Z87.39 Personal history of other diseases of the musculoskeletal system and connective tissue; Z87.09 Personal history of other diseases of the respiratory system; Z85.038 Personal history of other malignant neoplasm of large intestine; Z85.828 Personal history of other malignant neoplasm of skin; Z87.19 Personal history of other diseases of the digestive system; Z86.69 Personal history of other diseases of the nervous system and sense organs
CPT/HCPCS: 99283

== ENCOUNTER 2017-02-05 12:27 | Emergency (ER) | payer MEDICARE ==
[~2017-02-05] VITALS: Ht 162.6 cm; Wt 70.0 kg
[~2017-02-05 12:27] MED LIST changes: -PLAV75TA29 PO; +TRAM50TA PO
[2017-02-05 12:29] VITALS: BP 181/79; PULSE 73; RESP 16; TEMP 98.1; O2SAT 98
[2017-02-05 12:59] VITALS: O2SAT 100
[2017-02-05] MEDS ORDERED: MULT1TAB46 PO (13:06)
[2017-02-05] MEDS ORDERED: PANTOPRAZOLE INJ 80 MG in SODIUM CHLORIDE 0.9% INJ 35 ML IV ONE (13:23)
[2017-02-05] MEDS ORDERED: PANTOPRAZOLE INJ 80 MG in SODIUM CHLORIDE 0.9% INJ 100 ML IV SCH (13:23)
[2017-02-05] MEDS ORDERED: SODIUM CHLOR 0.9% 1000 ML INJ 1,000 ML IV SCH (13:23)
[2017-02-05] MEDS ORDERED: SODIUM CHLORIDE 0.9% FLUSH 10 ML FLUSH IVF PRN (13:30)
--- NOTE | 2017-02-05 13:36 | PD ---
HPI . Dark tarry stools Chief Complaint: Bleeding Time Seen by Provider: 13:23 Travel History International Travel<30 days: No Contact w/Intl Traveler<30days: No Traveled to known affect area: No History of Present Illness HPI Patient presents with a chief complaint of dark tarry stools. Onset was yesterday. She has had a total of 2 stools. She reports associated nominal pain. That is she has been a problem for over a year. Has been no change in the character of her abdominal pain. In addition to the dark tarry stools, she is complaining of feeling tired, weak, shaky, cold and anorexic. All of those symptoms have started with normal last 24 hours or so. 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[place], HEARING AIDS) Endocrine: Yes Gastrointestinal Disorders: Yes (ACID REFLUX, HX OF STOMACH ULCER) GERD: Yes Genitourinary: No Headaches: Yes (DUE TO NECK) Hepatitis: No Hiatal Hernia: No Hypertension: Yes Immune Disorder: No Implanted Vascular Access Dvce: Yes Musculoskeletal: Yes (ARTHRITIS, BACK/NECK PREVIOUS SURGERIES) Neurologic: Yes (NUMBNESS L ARM UP TO NECK) Psychiatric: Yes (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 CATARACT EXTRACT.) Genitourinary Surgery: Yes (PARTIAL COLON RESECT.) Gynecologic Surgery: Yes (HYSTERECTOMY) Hysterectomy: Yes Joint Replacement: Yes (RIGHT KNEE) Neurologic Surgery: Yes (CERVICAL FUSION, LUMBAR DISC, SEVERAL NECK AND BACK SURGERIES) Oral Surgery: No Pacemaker: No Thoracic Surgery: No Tympanostomy Tube: Yes Other Surgery: Yes Social History Alcohol Use: Yes (OCCASIONAL) Tobacco Use: No (quit 30+years ago- cigs) Substance Use: No Allergies-Medications (Allergen,Severity, Reaction): Coded Allergies: acetaminophen (Unverified Allergy, Severe, Itching, 02/05/17) codeine (Unverified Allergy, Severe, Nausea/Vomiting, 02/05/17) diatrizoate meglumine (Unverified Allergy, Severe, HIVES, 02/05/17) gadobenic acid (Unverified Allergy, Severe, HIVES, 02/05/17) gadodiamide (Unverified Allergy, Severe, HIVES, 02/05/17) gadoteridol (Unverified Allergy, Severe, HIVES, 02/05/17) hydrocodone (Unverified Allergy, Severe, Itching, 02/05/17) iodixanol (Unverified Allergy, Severe, HIVES, 02/05/17) iohexol (Unverified Allergy, Severe, HIVES, 02/05/17) naproxen (Unverified Allergy, Severe, GI UPSET, 02/05/17) aspirin (Unverified Adverse Reaction, Severe, Irritation, 02/05/17) PATIENT STATES SHE HAS ULCERS AND ASPIRIN UPSETS HER STOMACH *MDRO Multi-Drug Resistant Organism (Verified Adverse Reaction, Unknown, 02/05/17) 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 Uncoded Allergies: AMALACTIN (Allergy, Intermediate, WHELPS, 06/23/13) Reported Meds & Prescriptions Reported Meds & Active Scripts Active Reported Multi Vitamin Daily (Multiple Vitamin) 1 Tab Tab 11 Tab PO DAILY Simvastatin 20 Mg Tab 20 Mg PO DAILY Nexium (Esomeprazole DR) 40 Mg Capdr 40 Mg PO DAILY Losartan (Losartan Potassium) 50 Mg Tab 50 Mg PO DAILY Paroxetine (Paroxetine HCl) 20 Mg Tab 20 Mg PO DAILY Metformin (Metformin HCl) 500 Mg Tab 500 Mg PO AC DINNER With meals Metformin (Metformin HCl) 1,000 Mg Tab 1,000 Mg PO DAILY With a meal Review of Systems Except as stated in HPI: all other systems reviewed are Neg General / Constitutional: Positive: Other (feels cold), No: Fever HENT: Positive: Lightheadedness Cardiovascular: No: Chest Pain or Discomfort Respiratory: No: Shortness of Breath Gastrointestinal: Positive: Abdominal Pain, Loss of Appetite Physical Exam Narrative GENERAL: Awake and alert and in no acute distress. SKIN: warm/dry. HEAD: Normocephalic. Atraumatic. EYES: Pupils equal and round. No scleral icterus. No injection or drainage. ENT: No nasal bleeding or discharge. Mucous membranes pink and moist. NECK: Trachea midline. Full range of motion without pain.. CARDIOVASCULAR: Regular rate and rhythm. RESPIRATORY: No accessory muscle use. Clear to auscultation. Breath sounds equal bilaterally. GASTROINTESTINAL: Abdomen soft. Diffusely tender with no guarding or rebound. Bowel sounds present. Nondistended. RECTAL: Stool is very dark. MUSCULOSKELETAL: No obvious deformities. NEUROLOGICAL: Awake and alert. No obvious cranial nerve deficits. Motor grossly within normal limits. Normal speech. PSYCHIATRIC: Appropriate mood and affect; insight and judgment normal. Data Data Last Documented VS Vital Signs Date Time Temp Pulse Resp B/P (MAP) Pulse Ox O2 Delivery O2 Flow Rate FiO2 02/05/17 12:59 16 Room Air 02/05/17 12:29 98.1 73 181/79 (113) 98 Orders Orders Complete Blood Count With Diff (02/05/17 13:23) Comprehensive Metabolic Panel (02/05/17 13:23) Prothrombin Time / Inr (Pt) (02/05/17 13:23) Act Partial Throm Time (Ptt) (02/05/17 13:23) Type And Screen (02/05/17 13:23) Ecg Monitoring (02/05/17 13:23) Iv Access Insert/Monitor (02/05/17 13:23) Oximetry (02/05/17 13:23) Sodium Chlor 0.9% 1000 Ml Inj (Ns 1000 M (02/05/17 13:23) Sodium Chloride 0.9% Flush (Ns Flush) (02/05/17 13:30) Sodium Chloride 0.9... W/Pantoprazole In (02/05/17 13:23) Sodium Chloride 0.9... W/Pantoprazole In (02/05/17 13:23) MDM Medical Decision Making Medical Screen Exam Complete: Yes Emergency Medical Condition: Yes Differential Diagnosis Differential diagnosis of abdominal pain includes but is not limited to gastritis, pancreatitis, hepatitis, gastroenteritis, gallbladder disease, constipation, urinary retention, UTI, peptic ulcer disease, diverticulitis or appendicitis Narrative Course Patient presents complaining of dark tarry stools. She also has diffuse abdominal pain. I have ordered IV Protonix bolus and drip. Routine abdominal labs have been ordered. HemaPrompt Point of Care Internal Pos. & Neg. Controls: Passed Fecal Specimen Occult Blood: Negative Shelbie Scott MD Feb 05, 2017 13:36
[2017-02-05 14:10] LABS: BASOPHIL % 0.9 % (0.0-2.0); EOSINOPHIL # 0.1 TH/MM3 (0-0.4); EOSINOPHIL % 1.3 % (0.0-4.0); HEMATOCRIT 36.9 % (35.0-46.0); HEMO FLAGS DIFF FINAL; LYMPH % 32.5 % (9.0-44.0); LYMPHOCYTE # 1.7 TH/MM3 (1.0-4.8); MEAN CELL VOLUME 94.2 FL (80.0-100.0); MONO % 6.5 % (0.0-8.0); NEUT % 58.8 % (16.0-70.0); PLATELET COUNT 281 TH/MM3 (150-450); RED BLOOD COUNT 3.92 MIL/MM3 (4.00-5.30); RED CELL DISTRIBUTION WIDTH 13.9 % (11.6-17.2); WHITE BLOOD COUNT 5.2 TH/MM3 (4.0-11.0)
[2017-02-05 14:20] LABS: APTT (PATIENT) 28.9 SEC (24.3-30.1)
[2017-02-05 14:24] LABS: ALT (GPT) 15 U/L (10-53); ANION GAP 8 MEQ/L (5-15); AST (GOT) 16 U/L (15-37); BICARBONATE 25.5 MEQ/L (21.0-32.0); BLOOD UREA NITROGEN 21 MG/DL (7-18); CHLORIDE 104 MEQ/L (98-107); GLOMERULAR FILTRATION RATE 37 ML/MIN (>89); POTASSIUM 4.1 MEQ/L (3.5-5.1); SODIUM (NA) 137 MEQ/L (136-145)
[2017-02-05 14:27] LABS: ALKALINE PHOSPHATASE 75 U/L (45-117); TOTAL BILIRUBIN ADULT 0.4 MG/DL (0.2-1.0)
--- NOTE | 2017-02-05 15:07 | PD ---
Physical Exam Date Seen by Provider: Feb 05, 2017 Time Seen by Provider: 15:05 Narrative 82-year-old female presents emergency department for evaluation of dark tarry stools that started just today. Patient has a total of 2 bowel movements that have been dark and tarry. She states she has minimal abdominal pain, no nausea or vomiting. Patient denies any fever, chills, shortness breath, malaise. Data Data Last Documented VS Vital Signs Date Time Temp Pulse Resp B/P (MAP) Pulse Ox O2 Delivery O2 Flow Rate FiO2 02/05/17 12:59 16 Room Air 02/05/17 12:29 98.1 73 181/79 (113) 98 Orders Orders Complete Blood Count With Diff (02/05/17 13:23) Comprehensive Metabolic Panel (02/05/17 13:23) Prothrombin Time / Inr (Pt) (02/05/17 13:23) Act Partial Throm Time (Ptt) (02/05/17 13:23) Type And Screen (02/05/17 13:23) Ecg Monitoring (02/05/17 13:23) Iv Access Insert/Monitor (02/05/17 13:23) Oximetry (02/05/17 13:23) Sodium Chlor 0.9% 1000 Ml Inj (Ns 1000 M (02/05/17 13:23) Sodium Chloride 0.9% Flush (Ns Flush) (02/05/17 13:30) Sodium Chloride 0.9... W/Pantoprazole In (02/05/17 13:23) Sodium Chloride 0.9... W/Pantoprazole In (02/05/17 13:23) Labs Laboratory Tests Test 02/05/17 13:50 White Blood Count 5.2 TH/MM3 Red Blood Count 3.92 MIL/MM3 Hemoglobin 12.6 GM/DL Hematocrit 36.9 % Mean Corpuscular Volume 94.2 FL Mean Corpuscular Hemoglobin 32.0 PG Mean Corpuscular Hemoglobin Concent 34.0 % Red Cell Distribution Width 13.9 % Platelet Count 281 TH/MM3 Mean Platelet Volume 7.8 FL Neutrophils (%) (Auto) 58.8 % Lymphocytes (%) (Auto) 32.5 % Monocytes (%) (Auto) 6.5 % Eosinophils (%) (Auto) 1.3 % Basophils (%) (Auto) 0.9 % Neutrophils # (Auto) 3.0 TH/MM3 Lymphocytes # (Auto) 1.7 TH/MM3 Monocytes # (Auto) 0.3 TH/MM3 Eosinophils # (Auto) 0.1 TH/MM3 Basophils # (Auto) 0.0 TH/MM3 CBC Comment DIFF FINAL Differential Comment Prothrombin Time 11.0 SEC Prothromb Time International Ratio 1.0 RATIO Activated Partial Thromboplast Time 28.9 SEC Blood Urea Nitrogen 21 MG/DL Creatinine 1.36 MG/DL Random Glucose 97 MG/DL Total Protein 7.5 GM/DL Albumin 3.4 GM/DL Calcium Level 8.9 MG/DL Alkaline Phosphatase 75 U/L Aspartate Amino Transf (AST/SGOT) 16 U/L Alanine Aminotransferase (ALT/SGPT) 15 U/L Total Bilirubin 0.4 MG/DL Sodium Level 137 MEQ/L Potassium Level 4.1 MEQ/L Chloride Level 104 MEQ/L Carbon Dioxide Level 25.5 MEQ/L Anion Gap 8 MEQ/L Estimat Glomerular Filtration Rate 37 ML/MIN MDM Supervised Visit with ANITRA: Yes Differential Diagnosis Differential diagnoses include but not limited to gastritis, GI bleed, diverticulitis, dark stools Narrative Course 82-year-old female presents emergency department for evaluation of dark tarry stools. Patient was evaluated by Dr. Scott prior to receiving a medical bed. Hemoccult was negative. CBC, CMP, PT/INR, type and screen were ordered. Blood work shows no acute abnormality. Patient reassessed by myself and asked if she recently took Pepto-Bismol or iron. Patient states that she started iron 2 days ago. Patient feels relieved that the dark story stools correlate with iron supplement. Patient will be instructed to continue iron supplement and discharged home with instructions to follow up with her primary care return to the emergency Department with any worsening condition. Diagnosis Primary Impression: Medication side effect Qualified Codes: T88.7XXA - Unspecified adverse effect of drug or medicament, initial encounter Referrals: Primary Care Physician Patient Instructions: General Instructions, Iron Supplements (By mouth), Moderate Sedation (ED) Additional Instruction: Please return to emergency department if your symptoms return or worsen. Follow up with your primary care provider. Continued to take iron as prescribed. Disposition: DISCHARGE HOME Condition: Stable Joanna George ALICIA Feb 05, 2017 15:07
== END 2017-02-05 15:51 | disposition home or self-care (01) ==
LOC: NEPD 12:27
DX: T88.7XXA Unspecified adverse effect of drug or medicament, initial encounter (principal); R19.5 Other fecal abnormalities; R53.1 Weakness; R10.9 Unspecified abdominal pain; R42 Dizziness and giddiness; M19.90 Unspecified osteoarthritis, unspecified site; J45.909 Unspecified asthma, uncomplicated; E11.9 Type 2 diabetes mellitus without complications; I10 Essential (primary) hypertension
CPT/HCPCS: 80053; 85025; 85610; 85730; 86850; 86900; 86901; 96365; 99284; C9113; J7030

== ENCOUNTER 2017-10-30 11:09 | Observation (INO) ==
--- NOTE | 2017-10-30 12:12 | ED ---
HPI General Chief complaint: Weakness Stated complaint: Hard time Breathing/CHUNG/Pain all over Time Seen by Provider: 10/30/17 11:57 Source: patient, family and RN notes reviewed Mode of arrival: wheelchair History of Present Illness HPI narrative: 82yF presenting with multiple complaints. The patient reports several years of full-body itchy rash; she has seen her PMD several times over the past 2 months, who initially told her to stop taking her metformin, then her simvastatin, to see if either of these were causing her rash. She also reports several months of full-body aches, chills, non-productive cough, and fatigue. She presents to the ED today because she's had generalized weakness for the past 4 days which is affecting her ability to take care of herself, diffuse chest pain and dyspnea both at rest and on exertion, and nausea. She also admits to malodorous urine. Related Data Home Medications Medication Instructions Recorded Confirmed esomeprazole magnesium [Nexium] 20 mg PO DAILY 10/30/17 10/30/17 losartan 50 mg PO DAILY 10/30/17 10/30/17 multivitamin,tx-minerals 1 cap PO DAILY 10/30/17 10/30/17 [Multi-Vitamin HP/Minerals] paroxetine HCl 20 mg PO DAILY 10/30/17 10/30/17 Allergies Allergy/AdvReac Type Severity Reaction Status Date / Time acetaminophen Allergy Severe Itching Unverified 10/30/17 12:25 codeine Allergy Severe Nausea/Vomi Unverified 10/30/17 12:25 ting diatrizoate meglumine Allergy Severe HIVES Unverified 10/30/17 12:25 gadobenic acid Allergy Severe HIVES Unverified 10/30/17 12:25 gadodiamide Allergy Severe HIVES Unverified 10/30/17 12:25 gadoteridol Allergy Severe HIVES Unverified 10/30/17 12:25 hydrocodone Allergy Severe Itching Unverified 10/30/17 12:25 iodixanol Allergy Severe HIVES Unverified 10/30/17 12:25 iohexol Allergy Severe HIVES Unverified 10/30/17 12:25 naproxen Allergy Severe GI UPSET Unverified 10/30/17 12:25 aspirin AdvReac Severe Irritation Unverified 02/05/17 13:03 AMALACTIN Allergy Intermediate WHELPS Uncoded 04/03/14 15:56 *MDRO Multi-Drug Resistant AdvReac Unknown Cough Uncoded 10/30/17 12:25 Organism Review of Systems ROS: all other systems reviewed are negative Constitutional Reports chills, Denies fever(s), Reports poor appetite and Reports weakness Eyes Denies blurry vision ENT Reports nasal congestion Cardiovascular Reports palpitations Respiratory Reports cough Gastrointestinal Reports nausea and Denies vomiting Genitourinary Comments: (+) malodorous urine Musculoskeletal Reports back pain, Reports myalgias and Reports arthralgias Integumentary/Breasts Reports rash Neurologic Reports confusion Psychiatric Reports confusion PMFSH History History Provided By: Patient Social History Social History Substance History: No History of Abuse Second Hand Smoke Exposure: No Smoking Status: Never smoker How Often Do You Have a Drink Containing Alcohol: Never Recent Travel in [facility] within the Last 8 Weeks: No Recent Out of Country Travel within the Last 8 Weeks: No Exam Const General: no acute distress and frail appearing HENMT Head: normocephalic and atraumatic Face and sinus: normal facial exam Other: Mucosa dry Eyes General: appearance normal, both eyes and all related structures Pupils: PERRL Chest Chest: normal inspection of the chest Resp Effort & Inspection: normal respiratory effort Auscultation: no rhonchi and no wheezes Cardio Rate: regular rate Rhythm: regular rhythm GI Other: Soft, non-distended, non-tender throughout Skin Other: Excoriated rash to bilateral feet Neuro General: alert, awake, oriented x3 and no focal motor deficits Other: Speech clear and fluent, no slurred speech or aphasia Motor strength 5/5 and sensation intact throughout No focal neuro deficits Psych Affect: normal affect Course Initial Documented Vital Signs Temperature 97.5 F L 10/30/17 11:17 Pulse Rate 77 10/30/17 11:17 Respiratory Rate 20 10/30/17 11:17 Blood Pressure 140/60 10/30/17 11:17 Pulse Oximetry 98 10/30/17 11:17 Last Documented Vital Signs Temperature 97.5 F L 10/30/17 11:17 Pulse Rate 55 L 10/30/17 13:50 Respiratory Rate 18 10/30/17 13:50 Blood Pressure 169/97 H 10/30/17 13:50 Pulse Oximetry 100 10/30/17 13:50 Clinical Decision Support HEART Score Questions History: Slightly suspicious EKG: Non-specific repolarization disturbance Age: 65 years+ Risk Factors: 3 or more Risk Factors or Hx of Atherosclerotic Disease Initial Troponin: Normal Limit Heart Score HEART Score: 5 Medical Decision Making [facility] Narrative Medical decision making narrative: Assessment: 82yF presenting with multiple complaints Plan: EKG and monitor Labs UA CXR CTH Addendum: No significant abnormalities noted on workup; however, the patient is diabetic, elderly, and a female which puts her at higher risk for atypical presentation of acute coronary syndrome. Her HEART score is 5. She will need further workup and cardiac monitoring. I explained these results and plan to the patient and her family, who understand and agree. Case discussed with Dr. Torrez of [facility]. Differential Diagnosis Differential Diagnosis: Differential diagnosis includes, but is not limited to: UTI, pneumonia, liver disease, electrolyte abnormality, anemia, dehydration, ACS Medical Records Medical records reviewed: Yes I reviewed the patient's medical records. Lab Data Lab results reviewed: Yes I reviewed the patient's lab results. Result diagrams: 10/30/17 12:10 10/30/17 12:10 Lab Results 10/30/17 10/30/17 10/30/17 Range/Units 12:10 12:10 12:10 CBC w Diff Auto diff final WBC 4.9 (4.0-11.0) th/mm3 RBC 3.93 L (4.00-5.30) mil/mm3 Hgb 12.7 (11.6-15.3) gm/dL Hct 37.8 (35.0-46.0) % MCV 96.2 (80.0-100.0) fL MCH 32.4 (27.0-34.0) pg MCHC 33.7 (32.0-36.0) % RDW 12.6 (11.6-17.2) % Plt Count 241 (150-450) th/mm3 MPV 7.1 (7.0-11.0) fL Neut % (Auto) 51.6 (16.0-70.0) % Lymph % (Auto) 35.8 (9.0-44.0) % [place] % (Auto) 7.6 (0.0-8.0) % Eos % (Auto) 4.2 H (0.0-4.0) % Baso % (Auto) 0.8 (0.0-2.0) % Neut # (Auto) 2.5 (1.8-7.7) th/mm3 Lymph # (Auto) 1.8 (1.0-4.8) th/mm3 [place] # (Auto) 0.4 (0.0-0.9) th/mm3 Eos # (Auto) 0.2 (0.0-0.4) th/mm3 Baso # (Auto) 0.0 (0.0-0.2) th/mm3 WBC Differential . Differential Comment . Sodium 140 (136-145) meq/L Potassium 3.9 (3.5-5.1) meq/L Chloride 106 (98-107) meq/L Carbon Dioxide 27.0 (21.0-32.0) meq/L Anion Gap 7 (5-15) meq/L BUN 18 (7-18) mg/dL Creatinine 1.40 H (0.50-1.00) mg/dL Estimated GFR 36 L (>89) mL/min Random Glucose 110 H (74-106) mg/dL Calcium 9.4 (8.5-10.1) mg/dL Total Bilirubin 0.4 (0.2-1.0) mg/dL AST 19 (15-37) U/L ALT 17 (10-53) U/L Alkaline Phosphatase 60 (45-117) U/L Troponin I Less than 0.02 L Cancelled (0.02-0.05) ng/mL Total Protein 7.4 (6.4-8.2) g/dL Albumin 3.0 L (3.4-5.0) g/dL Lipase 171 (73-393) U/L TSH 1.330 (0.358-3.740) uIU/mL Ur Collection Type Urine Color (Yellw/Straw) Urine Clarity (Clear) Urine pH (5.0-8.5) Ur Specific [place] (1.002-1.035) Urine Protein (Neg-Trace) mg/dL Urine Glucose (UA) (Negative) mg/dL Urine Ketones (Negative) mg/dL Urine Occult Blood (Negative) Urine Nitrate (Negative) Urine Bilirubin (Negative) Urine Urobilinogen (Less than 2) mg/dL Ur Leukocyte Esterase (Negative) Urine WBC (0-5) /hpf Ur Squamous Epith Cells (0-5) /hpf Ur Renal Epithelial Cell (None) /hpf Micro UA Comment Urine Culture Comments 10/30/17 Range/Units 13:20 CBC w Diff WBC (4.0-11.0) th/mm3 RBC (4.00-5.30) mil/mm3 Hgb (11.6-15.3) gm/dL Hct (35.0-46.0) % MCV (80.0-100.0) fL MCH (27.0-34.0) pg MCHC (32.0-36.0) % RDW (11.6-17.2) % Plt Count (150-450) th/mm3 MPV (7.0-11.0) fL Neut % (Auto) (16.0-70.0) % Lymph % (Auto) (9.0-44.0) % [place] % (Auto) (0.0-8.0) % Eos % (Auto) (0.0-4.0) % Baso % (Auto) (0.0-2.0) % Neut # (Auto) (1.8-7.7) th/mm3 Lymph # (Auto) (1.0-4.8) th/mm3 [place] # (Auto) (0.0-0.9) th/mm3 Eos # (Auto) (0.0-0.4) th/mm3 Baso # (Auto) (0.0-0.2) th/mm3 WBC Differential Differential Comment Sodium (136-145) meq/L Potassium (3.5-5.1) meq/L Chloride (98-107) meq/L Carbon Dioxide (21.0-32.0) meq/L Anion Gap (5-15) meq/L BUN (7-18) mg/dL Creatinine (0.50-1.00) mg/dL Estimated GFR (>89) mL/min Random Glucose (74-106) mg/dL Calcium (8.5-10.1) mg/dL Total Bilirubin (0.2-1.0) mg/dL AST (15-37) U/L ALT (10-53) U/L Alkaline Phosphatase (45-117) U/L Troponin I (0.02-0.05) ng/mL Total Protein (6.4-8.2) g/dL Albumin (3.4-5.0) g/dL Lipase (73-393) U/L TSH (0.358-3.740) uIU/mL Ur Collection Type Clean catch Urine Color Yellow (Yellw/Straw) Urine Clarity Clear (Clear) Urine pH 7.5 (5.0-8.5) Ur Specific [place] 1.010 (1.002-1.035) Urine Protein 30 H (Neg-Trace) mg/dL Urine Glucose (UA) Negative (Negative) mg/dL Urine Ketones Negative (Negative) mg/dL Urine Occult Blood Negative (Negative) Urine Nitrate Negative (Negative) Urine Bilirubin Negative (Negative) Urine Urobilinogen 0.2 (Less than 2) mg/dL Ur Leukocyte Esterase Small H (Negative) Urine WBC 6-8 H (0-5) /hpf Ur Squamous Epith Cells 0-5 (0-5) /hpf Ur Renal Epithelial Cell 1-5 H (None) /hpf Micro UA Comment Culture not ind Urine Culture Comments Culture not ind Imaging Data Radiologist's impression: Chest X-Ray 10/30/17 12:08 CONCLUSION: 1. Hazy perihilar and bibasilar opacities most characteristic of scarring and/ or fibrosis. 2. No new areas of consolidation to suggest pneumonia. Head CT 10/30/17 12:08 CONCLUSION: 1. 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 2. Nothing acute . ECG Data Attestation: I personally reviewed and interpreted this ECG as follows: Interpretation: Rate: 68 BPM Rhythm: Sinus with PACs [place]: Normal Intervals: Normal intervals, no blocks, QTc 450 ms Q waves: None T waves: Upright, no inversions ST segments: No elevations or depressions Impression: Non-specific EKG, premature atrial contractions, no significant changes as compared to EKG from 06/02/2016. Discharge Plan Discharge Disposition Patient Disposition: 30 Still Patient Discharge Condition Condition: Good Discharge Details Diagnosis: Chest pain, Weakness generalized Physicians Team ED Provider: Stefanie Martinez Primary Care Provider: Sharron Kulkarni Rxs /Orders / Referrals /Forms Prescriptions: No Action losartan 50 mg Tablet 50 mg PO DAILY RF: 0 paroxetine HCl 20 mg Tablet 20 mg PO DAILY RF: 0 esomeprazole magnesium [Nexium] 20 mg Capsule,Delayed Release(Dr/Ec) 20 mg PO DAILY RF: 0 multivitamin,tx-minerals [Multi-Vitamin HP/Minerals] Capsule 1 cap PO DAILY RF: 0 Status ED Status: With Doctor
[2017-10-30 12:23] LABS: Baso % (Auto) 0.8 % (0.0-2.0); Eos # (Auto) 0.2 th/mm3 (0.0-0.4); Eos % (Auto) 4.2 % (0.0-4.0); Hematocrit 37.8 % (35.0-46.0); Hemoglobin 12.7 gm/dL (11.6-15.3); Lymph # (Auto) 1.8 th/mm3 (1.0-4.8); Lymph % (Auto) 35.8 % (9.0-44.0); Mean Corpuscular HGB Conc 33.7 % (32.0-36.0); Mean Corpuscular Hemoglobin 32.4 pg (27.0-34.0); Mean Corpuscular Volume 96.2 fL (80.0-100.0); Mean Platelet Volume 7.1 fL (7.0-11.0); Mono # (Auto) 0.4 th/mm3 (0.0-0.9); Mono % (Auto) 7.6 % (0.0-8.0); Neut # (Auto) 2.5 th/mm3 (1.8-7.7); Neut % (Auto) 51.6 % (16.0-70.0); Platelet Count 241 th/mm3 (150-450); Red Blood Count 3.93 mil/mm3 (4.00-5.30); Red Cell Distribution Width 12.6 % (11.6-17.2); White Blood Count 4.9 th/mm3 (4.0-11.0)
[2017-10-30 12:32] LABS: Chloride 106 meq/L (98-107); Potassium 3.9 meq/L (3.5-5.1); Sodium 140 meq/L (136-145)
[2017-10-30 12:36] LABS: Anion Gap 7 meq/L (5-15); Calcium 9.4 mg/dL (8.5-10.1); Glucose,Random 110 mg/dL (74-106); Lipase 171 U/L (73-393)
[2017-10-30 12:37] LABS: Blood Urea Nitrogen 18 mg/dL (7-18)
--- NOTE | 2017-10-30 12:38 | XR ---
EXAM DATE: 10/30/2017 12:29 PM EDT AGE/SEX: 82 years / Female INDICATIONS: Cough, difficulty breathing, body aches. CLINICAL DATA: This is the patient's initial encounter. Patient reports that signs and symptoms have been present for 4 - 6 days and indicates a pain score of 8/10. MEDICAL/SURGICAL HISTORY: None. None. COMPARISON: [facility] [place], CHEST PA & LAT, 06/02/2016. . FINDINGS: A single AP erect portable view of the chest was obtained. The heart size is mildly prominent and the re is hazy opacity in the perihilar regions and both lung bases without significant change. There is no new confluent infiltrate or effusion. Scoliosis and osteopenia noted in the thoracic spine. There are degenerative changes in both shoulders. Atherosclerotic changes are present in the aorta. Multipl e overlying electrocardiogram leads are present. CONCLUSION: 1. Hazy perihilar and bibasilar opacities most characteristic of scarring and/or fibrosis. 2. No new areas of consolidation to suggest pneumonia. Electronically signed by: Layo Spring MD 10/30/2017 12:36 PM EDT
[2017-10-30 12:39] LABS: Alanine Aminotransferase 17 U/L (10-53); Aspartate Aminotransferase 19 U/L (15-37); Glomerular Filtration Rate 36 mL/min (>89)
[2017-10-30 12:41] LABS: Total Protein 7.4 g/dL (6.4-8.2)
[2017-10-30 12:42] LABS: Alkaline Phosphatase 60 U/L (45-117)
[2017-10-30] MEDS ORDERED: Sodium Chlor 0.9% Inj 500 ML IV.SIG ONE (12:45)
--- NOTE | 2017-10-30 13:10 | CT ---
EXAM DATE: 10/30/2017 1:01 PM EDT AGE/SEX: 82 years / Female INDICATIONS: Generalized weakness. Confusion. Evaluate for ICH. CLINICAL DATA: This is the patient's initial encounter. Patient reports that signs and symptoms have been present for 1 week and indicates a pain score of 8/10. MEDICAL/SURGICAL HISTORY: Diabetes. Fusion, cervical. RADIATION DOSE: 54.18 CTDI (mGy) COMPARISON: [facility], CT BRAIN W/O CONTRAST, 07/10/2014. . TECHNIQUE: CT of the head without contrast. Using automated exposure control and adjustment of the mA and/or kV according to patient size, radiation dose was kept as low as reasonably achievable to ob tain optimal diagnostic quality images. DICOM format image data is available electronically for revi ew and comparison. FINDINGS: Cerebrum: The ventricles are normal for age. Stable, moderately severe periventricular areas of dim inished attenuation. No evidence of midline shift, mass lesion, hemorrhage or acute infarction. No e xtraaxial fluid collections are seen. Posterior Fossa: The cerebellum and brainstem are intact. The 4th ventricle is midline. The cerebe llopontine angle is unremarkable. Extracranial: The visualized portion of the orbits is intact. Skull: The calvaria is intact. No evidence of skull fracture. CONCLUSION: 1. 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 2. Nothing acute . Electronically signed by: Jim Friend MD 10/30/2017 1:09 PM EDT
[2017-10-30 13:31] LABS: Bilirubin,Urine Negative (Negative); Clarity,Urine Clear (Clear); Color,Urine Yellow (Yellw/Straw); Glucose,Urine (UA) Negative (Negative); Leukocyte Esterase,Urine Small (Negative); Nitrite,Urine Negative (Negative); PH,Urine 7.5 (5.0-8.5); Urobilinogen,Urine 0.2 mg/dL (Less than 2)
[2017-10-30 13:36] LABS: Squamous Epithelial Cell,Urine 0-5 /hpf (0-5)
[2017-10-30] MEDS ORDERED: Bisacodyl 10 MG Supp RECTAL PRN (14:43)
[2017-10-30] MEDS: Sod Chloride 0.9% Inj 1,000 ML IV.CONT SCH (15:08)
--- NOTE | 2017-10-30 15:09 | P.HP ---
History of Present Illness Primary Care Physician: Sharron Kulkarni MD Chief Complaint: Generalized weakness and abdominal pain History of Present Illness: This is a pleasant 82-year-old female patient with a known medical history of GERD, diabetes, hypertension and hyperlipidemia who presented to the ED with multiple complaints. She states that over the past 4 days she has had increasingly generalized weakness, as well as diffuse abdominal pain, nausea as well as left-sided chest pain. She does state that she has been unable to eat secondary to the diffuse abdominal pain for the past few days. Patient does admit to intermittent bouts of constipation and diarrhea with intermittent specks of black in her stool. Last colonoscopy was [address] Gunderson, which was reportedly negative. She does report a history of colon cancer in the past. Patient also has complaints of headaches with shooting pains, intermittent dizziness and vertigo. Head CT on presentation was done and reviewed showing no acute findings, stable chronic changes. She does have a history of chronic back and neck pain including multiple previous surgeries. Patient states she has been having a hard time sleeping, has had to sleep in a recliner to get comfortable secondary to her chronic back and neck pain. She also complains of left-sided chest pain. Upon assessment and palpation, the left chest has obvious pain to palpation. All of these symptoms are likely musculoskeletal in nature. The pain is reportedly worse with different movements as well as changing in position. Patient characterizes the pain as sharp and shooting in nature, rating the pain a 5 out of 10 at its worst on pain scale. Denies ever having a cardiac stress test in the past. It should also be noted that the patient's PCP, Dr. Olmstead, just recently took her off metformin as well as simvastatin for complaints of skin rash. Patient reports that this rash has improved since these medications have been discontinued. - Diagnosis (1) Weakness generalized (2) Abdominal pain Review of Systems All other systems reviewed negative except as stated in HPI PMFSH - History History Provided By: Patient - Medical History Medical History: Medical History (Last Updated 10/30/17 @ 17:15 by Joanna Ortez) Mesenteric artery stenosis (Acute) HLD (hyperlipidemia) (Acute) Diabetes (Acute) Colon cancer H/O: hysterectomy Skin cancer - Surgical History Surgical History: Surgical History (Last Updated 10/30/17 @ 17:15 by Joanna Ortez) Hx of neck surgery Previous back surgery - Family History Family History: Family History (Last Updated 10/30/17 @ 17:15 by Joanna Ortez) Other No pertinent family history - Tobacco History Second Hand Smoke Exposure: No Tobacco Use In Past 30 Days: No Smoking Status: Never smoker - Alcohol History How Often Do You Have a Drink Containing Alcohol: Never - Substance Use History Substance History: No History of Abuse - Travel History Recent Travel in the [place] Within the Last 8 Weeks: No Recent Travel Out of the Country Within the Last 8 Weeks: No - Immunization History Tetanus Immunization: Unsure Hx Influenza Vaccine This Season: Yes Medications and Allergies Active Medications: Active Medications Al Hydroxide/Mg Hydroxide (Milk Of Magnesia Liq) 30 ml PO Q12H PRN PRN Reason: Mild Constipation Bisacodyl (Dulcolax Supp) 10 mg RECTAL DAILY PRN PRN Reason: SEVERE CONSITIPATION Sodium Chloride (Ns Inj) 1,000 mls @ 84 mls/hr IV.CONT .[id number] GERRY Last Admin: 10/30/17 15:08 Dose: 84 mls/hr Lactulose (Lactulose Liq) 30 ml PO DAILY PRN PRN Reason: SEVERE CONSITIPATION Ondansetron HCl (Zofran Inj) 4 mg IV.PUSH Q6H PRN PRN Reason: NAUSEA OR VOMITING Senna/Docusate Sodium (Radha-Colace) 1 tab PO BID [facility] Sennosides (Senokot) 17.2 mg PO Q12H PRN PRN Reason: Moderate Constipation Temazepam (Restoril) 15 mg PO HS PRN PRN Reason: INSOMNIA Allergies Allergy/AdvReac Type Severity Reaction Status Date / Time acetaminophen Allergy Severe Itching Unverified 10/30/17 12:25 codeine Allergy Severe Nausea/Vomi Unverified 10/30/17 12:25 ting diatrizoate meglumine Allergy Severe HIVES Unverified 10/30/17 12:25 gadobenic acid Allergy Severe HIVES Unverified 10/30/17 12:25 gadodiamide Allergy Severe HIVES Unverified 10/30/17 12:25 gadoteridol Allergy Severe HIVES Unverified 10/30/17 12:25 hydrocodone Allergy Severe Itching Unverified 10/30/17 12:25 iodixanol Allergy Severe HIVES Unverified 10/30/17 12:25 iohexol Allergy Severe HIVES Unverified 10/30/17 12:25 naproxen Allergy Severe GI UPSET Unverified 10/30/17 12:25 aspirin AdvReac Severe Rash Verified 10/30/17 15:11 AMALACTIN Allergy Intermediate WHELPS Uncoded 06/23/13 15:56 *MDRO Multi-Drug Resistant AdvReac Unknown Cough Uncoded 10/30/17 12:25 Organism Home Medications Medication Instructions Recorded Confirmed Type esomeprazole magnesium [Nexium] 20 mg PO DAILY 10/30/17 10/30/17 History losartan 50 mg PO DAILY 10/30/17 10/30/17 History multivitamin,tx-minerals 1 cap PO DAILY 10/30/17 10/30/17 History [Multi-Vitamin HP/Minerals] paroxetine HCl 20 mg PO DAILY 10/30/17 10/30/17 History Exam Vital signs: Vital Signs 10/30/17 11:17 10/30/17 12:38 10/30/17 13:08 Temperature 97.5 F L Pulse Rate 77 65 61 Respiratory Rate 20 20 Blood Pressure 140/60 169/97 H Pulse Oximetry 98 100 10/30/17 13:50 Temperature Pulse Rate 55 L Respiratory Rate 18 Blood Pressure 169/97 H Pulse Oximetry 100 Intake & Output 10/29/17 10/30/17 10/30/17 18:59 06:59 18:59 Weight 63 kg Narrative: GENERAL: Well-developed, well-nourished elderly female patient in [facility]. SKIN: Warm and dry. No rash. HEAD: Normocephalic. Atraumatic. EYES: Pupils equal and round. No scleral icterus. No injection or drainage. ENT: No nasal bleeding or discharge. Mucous membranes pink and moist. NECK: Supple. Trachea midline. CARDIOVASCULAR: Regular rate and rhythm. S1, S2 noted. No murmur appreciated. Obvious tenderness to left chest wall to palpation. RESPIRATORY: No accessory muscle use. Clear to auscultation. Breath sounds equal bilaterally. GASTROINTESTINAL: Abdomen soft, nondistended. Normoactive bowel sounds x4. Tenderness to right upper and lower quadrant. MUSCULOSKELETAL: No obvious deformities. Extremities without clubbing, cyanosis , or edema. NEUROLOGICAL: Awake and alert. No obvious cranial nerve deficits. Motor grossly within normal limits. 5/5 muscle strength in bilateral upper and lower extremities. Normal speech. PSYCHIATRIC: Appropriate mood and affect; insight and judgment normal. Results - Labs CBC & Chem 7: 10/30/17 12:10 10/30/17 12:10 Labs: Laboratory Results - last 24 hr 10/30/17 10/30/17 10/30/17 12:10 12:10 12:10 CBC w Diff Auto diff final WBC 4.9 RBC 3.93 L Hgb 12.7 Hct 37.8 MCV 96.2 MCH 32.4 MCHC 33.7 RDW 12.6 Plt Count 241 MPV 7.1 Neut % (Auto) 51.6 Lymph % (Auto) 35.8 [place] % (Auto) 7.6 Eos % (Auto) 4.2 H Baso % (Auto) 0.8 Neut # (Auto) 2.5 Lymph # (Auto) 1.8 [place] # (Auto) 0.4 Eos # (Auto) 0.2 Baso # (Auto) 0.0 WBC Differential . Differential Comment . Sodium 140 Potassium 3.9 Chloride 106 Carbon Dioxide 27.0 Anion Gap 7 BUN 18 Creatinine 1.40 H Estimated GFR 36 L Random Glucose 110 H Calcium 9.4 Total Bilirubin 0.4 AST 19 ALT 17 Alkaline Phosphatase 60 Troponin I Less than 0.02 L Cancelled Total Protein 7.4 Albumin 3.0 L Lipase 171 TSH 1.330 Ur Collection Type Urine Color Urine Clarity Urine pH Ur Specific [place] Urine Protein Urine Glucose (UA) Urine Ketones Urine Occult Blood Urine Nitrate Urine Bilirubin Urine Urobilinogen Ur Leukocyte Esterase Urine WBC Ur Squamous Epith Cells Ur Renal Epithelial Cell Micro UA Comment Urine Culture Comments 10/30/17 13:20 CBC w Diff WBC RBC Hgb Hct MCV MCH MCHC RDW Plt Count MPV Neut % (Auto) Lymph % (Auto) [place] % (Auto) Eos % (Auto) Baso % (Auto) Neut # (Auto) Lymph # (Auto) [place] # (Auto) Eos # (Auto) Baso # (Auto) WBC Differential Differential Comment Sodium Potassium Chloride Carbon Dioxide Anion Gap BUN Creatinine Estimated GFR Random Glucose Calcium Total Bilirubin AST ALT Alkaline Phosphatase Troponin I Total Protein Albumin Lipase TSH Ur Collection Type Clean catch Urine Color Yellow Urine Clarity Clear Urine pH 7.5 Ur Specific [place] 1.010 Urine Protein 30 H Urine Glucose (UA) Negative Urine Ketones Negative Urine Occult Blood Negative Urine Nitrate Negative Urine Bilirubin Negative Urine Urobilinogen 0.2 Ur Leukocyte Esterase Small H Urine WBC 6-8 H Ur Squamous Epith Cells 0-5 Ur Renal Epithelial Cell 1-5 H Micro UA Comment Culture not ind Urine Culture Comments Culture not ind - Imaging Impressions Chest X-Ray 10/30/17 12:08 CONCLUSION: 1. Hazy perihilar and bibasilar opacities most characteristic of scarring and/ or fibrosis. 2. No new areas of consolidation to suggest pneumonia. Head CT 10/30/17 12:08 CONCLUSION: 1. 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 2. Nothing acute . Caprini VTE Risk Assessment Caprini VTE Risk Assessment: Moderate/High Risk (score >= 2) Caprini Risk Assessment Model: Point Value = 1 Point Value = 2 Point Value = 3 Point Value = 5 Age 41-60 Minor surgery BMI > 25 kg/m2 Swollen legs Varicose veins or History of unexplained or recurrent spontaneous Oral contraceptives or hormone replacement Sepsis (< 1 month) Serious lung disease, including pneumonia (< 1 month) Abnormal pulmonary function Acute myocardial infarction Congestive heart failure (< 1 month) History of inflammatory bowel disease Medical patient at bed rest Age 61-74 Arthroscopic surgery Major open surgery (> 45 min) Laparoscopic surgery (> 45 min) Malignancy Confined to bed (> 72 hours) Immobilizing plaster cast Central venous access Age >= 75 History of VTE Family history of VTE Factor V Leiden Prothrombin [id number] Lupus anticoagulant Anticardiolipin antibodies Elevated serum homocysteine Heparin-induced thrombocytopenia Other congenital or acquired thrombophilia Stroke (< 1 month) Elective arthroplasty Hip, pelvis, or leg fracture Acute spinal cord injury (< 1 month) Prophylaxis Regimen: Total Risk Factor Score Risk Level Prophylaxis Regimen 0-1 Low Early ambulation 2 Moderate Order ONE of the following: *Sequential Compression Device (SCD) *Heparin 5000 units SQ BID 3-4 Higher Order ONE of the following medications: *Heparin 5000 units SQ TID *Enoxaparin/Lovenox 40 mg SQ daily (WT < 150 kg, CrCl > 30 mL/min) *Enoxaparin/Lovenox 30 mg SQ daily (WT < 150 kg, CrCl > 10-29 mL/min) *Enoxaparin/Lovenox 30 mg SQ BID (WT < 150 kg, CrCl > 30 mL/min) AND/OR *Sequential Compression Device (SCD) 5 or more Highest Order ONE of the following medications: *Heparin 5000 units SQ TID (Preferred with Epidurals) *Enoxaparin/Lovenox 40 mg SQ daily (WT < 150 kg, CrCl > 30 mL/min) *Enoxaparin/Lovenox 30 mg SQ daily (WT < 150 kg, CrCl > 10-29 mL/min) *Enoxaparin/Lovenox 30 mg SQ BID (WT < 150 kg, CrCl > 30 mL/min) AND *Sequential Compression Device (SCD) Assessment and Plan - Assessment (1) Weakness generalized Code(s): R53.1 - Weakness Status: Acute (2) Abdominal pain Code(s): R10.9 - Unspecified abdominal pain Status: Acute - Plan This is an 82-year-old female patient presenting with multiple complaints: Diffuse abdominal pain unknown etiology -Also reports of associated nausea and black stool. -Occult stool ordered. Will follow. -Hemoglobin on presentation 12.7/hematocrit 37.8. Stable. Will trend H&H. -Check iron studies. LFTs WNL. -Will check abdominal/pelvis CT. Follow. -Last colonoscopy [address] Sanchez. For now, will hold off on consult to gastroenterology until workup done regarding etiology. Acute kidney injury likely secondary to dehydration. -Creatinine 1.4/BUN 18/GFR 36. Will continue IV fluids. Monitor BMP. Atypical chest pain suspect secondary to musculoskeletal etiology -This is clearly musculoskeletal in nature. Patient has significant tenderness to palpation especially the left-sided chest. -Serial EKGs and serial troponins have been ordered for ruling out ACS purposes. Initial troponin flat. EKG reviewed showing no ST changes. -Chest x-ray reviewed showing no trauma. Does show some perihilar bibasilar opacities characteristic of scarring and fibrosis. -Patient has allergies to Tylenol and NSAIDs. Headache, dizziness and vertigo -Head CT on presentation is reportedly negative. There are chronic changes that are stable. No acute findings. -Supportive care with Meclizine. Symptoms have improved. Hypertension, chronic: Will continue home medications. Clonidine as needed. Monitor blood pressure trends. Type 2 diabetes mellitus, chronic: Patient was recently taken off of metformin by her PCP. Will place on Accu-Chek before meals at bedtime, sliding scale, cover as needed. Diabetic diet. DVT prophylaxis: SCDs. Hold chemical prophylaxis, with complaints of black stools.
[2017-10-30] MEDS ORDERED: Aluminum/Magnesium/Simethacone Susp 30 ML UDC PO PRN (17:18)
[2017-10-30] MEDS ORDERED: Dextrose 50% in Water 50 ML Vial IV.PUSH PRN (17:28)
--- NOTE | 2017-10-30 19:58 | CT ---
EXAM DATE: 10/30/2017 7:51 PM EDT AGE/SEX: 82 years / Female INDICATIONS: Epigastric pain. Nausea and vomiting. CLINICAL DATA: This is the patient's initial encounter. Patient reports that signs and symptoms have been present for 1 day and indicates a pain score of 5/10. MEDICAL/SURGICAL HISTORY: Carcinoma, colon. Diabetes. Mesenteric artery stenosis. Hysterectom y. Fusion, cervical. Fusion, lumbar. RADIATION DOSE: 8.13 CTDI (mGy) COMPARISON: POI, CTA ABDOMEN AND PELVIS, 10/22/2016. . TECHNIQUE: Multiple contiguous axial images were obtained through the abdomen. Images were obtained using multiple row detector helical technique. Using automated exposure control and adjustment of the mA and/or kV according to patient size, radiation dose was kept as low as reasonably achievable to o btain optimal diagnostic quality images. DICOM format image data is available electronically for rev iew and comparison. FINDINGS: Noncontrast appearance of the liver, spleen, pancreas, adrenal glands and kidneys within normal limit s. No obstruction seen of the gastrointestinal tract. Severe diverticulosis in the sigmoid colon but no evidence of diverticulitis or other acute inflammatory changes. No free fluid or free air. No lymphad enopathy. Atherosclerotic abdominal aorta again noted. Chronic interstitial changes are seen of the visualized lung bases. No perceptible acute infiltrate. No effusion. CONCLUSION: No acute abnormality demonstrated. Electronically signed by: Gopal Danielle MD 10/30/2017 7:57 PM EDT
[2017-10-30 21:21] LABS: Creatine Kinase 62 U/L (26-192)
[2017-10-30] MEDS: Senna/Docusate Sodium 8.6/50 MG Tablet PO SCH (22:59)
[2017-10-30] MEDS: Temazepam 15 MG Capsule PO PRN (22:59)
[2017-10-30] MEDS: Insulin NovoLOG Aspart Correctional Sugar Inj SQ SCH (23:02)
[2017-10-31 00:45] LABS: % Iron Saturation 42.7 % (20-50)
[2017-10-31] MEDS: Sod Chloride 0.9% Inj 1,000 ML IV.CONT SCH ×3 (02:58→13:41)
[2017-10-31 03:49] LABS: Troponin I 0.02 ng/mL (0.02-0.05)
--- NOTE | 2017-10-31 07:54 | ECG ---
Date Performed: 10/30/2017 Time Performed: 20:13:37 PTAGE: 82 years EKG: SINUS BRADYCARDIA POSSIBLE LEFT ATRIAL ENLARGEMENT PROLONGED QT INTERVAL ABNORMAL ECG PREVIOUS TRACING : 10/30/2017 11.37 DOCTOR: Michael Ennis Interpretating Date/Time 10/31/2017 07:53:56
[2017-10-31] MEDS: Insulin NovoLOG Aspart Correctional Sugar Inj SQ SCH ×4 (08:17→20:39)
[2017-10-31] MEDS: Senna/Docusate Sodium 8.6/50 MG Tablet PO SCH ×2 (08:18→20:40)
[2017-10-31] MEDS: Pantoprazole Sodium 20 MG DR Tablet PO SCH (08:18)
[2017-10-31] MEDS: Multivitamin/Minerals Therapeutic Tablet PO SCH (08:19)
[2017-10-31 08:44] LABS: Baso % (Auto) 0.6 % (0.0-2.0); Eos # (Auto) 0.3 th/mm3 (0.0-0.4); Eos % (Auto) 5.7 % (0.0-4.0); Hematocrit 38.2 % (35.0-46.0); Hemoglobin 12.9 gm/dL (11.6-15.3); Lymph # (Auto) 2.2 th/mm3 (1.0-4.8); Lymph % (Auto) 40.7 % (9.0-44.0); Mean Corpuscular HGB Conc 33.8 % (32.0-36.0); Mean Corpuscular Volume 94.6 fL (80.0-100.0); Mean Platelet Volume 7.6 fL (7.0-11.0); Mono # (Auto) 0.4 th/mm3 (0.0-0.9); Mono % (Auto) 6.5 % (0.0-8.0); Neut # (Auto) 2.6 th/mm3 (1.8-7.7); Neut % (Auto) 46.5 % (16.0-70.0); Platelet Count 270 th/mm3 (150-450); Red Blood Count 4.04 mil/mm3 (4.00-5.30); Red Cell Distribution Width 13.5 % (11.6-17.2); White Blood Count 5.5 th/mm3 (4.0-11.0)
--- NOTE | 2017-10-31 09:17 | ECG ---
Date Performed: 10/30/2017 Time Performed: 11:37:44 PTAGE: 82 years EKG: Sinus rhythm WITH OCCASIONAL SUPRAVENTRICULAR PREMATURE COMPLEXES MODERATE INTRAVENTRICULAR CONDUCTION DELAY MONIQUE [facility] ECG INTERPRETATION BASED ON A DEFAULT AGE OF 40 YEARS PREVIOUS TRACING : 06/02/2016 13.22 DOCTOR: Michael Ennis Interpretating Date/Time 10/31/2017 09:16:50
--- NOTE | 2017-10-31 12:19 | ECG ---
Date Performed: 10/31/2017 Time Performed: 02:13:48 PTAGE: 82 years EKG: SINUS BRADYCARDIA PROLONGED QT INTERVAL ABNORMAL ECG PREVIOUS TRACING : 10/30/2017 20.13 DOCTOR: Michael Ennis Interpretating Date/Time 10/31/2017 12:19:03
--- NOTE | 2017-10-31 14:35 | P.PN ---
Subjective Interval history: 82-year-old female who is seen and examined in follow-up for abdominal pain, chest pain, dark colored stools, intermittent constipation. Patient states that she is feeling better today. Her pain is significantly improved. However she states that she still having dark colored stools. Patient indicates that she can feel her heart racing periodically. Vital signs are stable, patient remains afebrile. Physical Exam Vital signs: Vital Signs 10/30/17 15:28 10/30/17 16:00 10/30/17 20:00 Temperature 97.3 F L 96.7 F L Pulse Rate 59 L 71 53 L Respiratory Rate 18 18 18 Blood Pressure 160/80 H 182/70 H 151/67 H Pulse Oximetry 100 96 10/31/17 00:00 10/31/17 06:20 10/31/17 07:52 Temperature 96.7 F L 96.2 F L Pulse Rate 52 L 53 L 54 L Respiratory Rate 18 20 Blood Pressure 125/62 132/62 Pulse Oximetry 96 96 10/31/17 08:00 10/31/17 11:29 Temperature 96.4 F L Pulse Rate 63 58 L Respiratory Rate 20 Blood Pressure 130/64 Pulse Oximetry 96 Intake & Output 10/30/17 10/31/17 10/31/17 18:59 06:59 18:59 Intake Total 480 / 480 1740 / 1740 1000 / 1000 Balance 480 / 480 1740 / 1740 1000 / 1000 Weight 63 kg 63.2 kg Intake: IV 1500 / 1500 1000 / 1000 NS Inj 1,000 ML @ 84 mls/hr IV. 1000 / 1000 1000 / 1000 CONT .[id number] GERRY Rx#: [id number] NS Inj 500 ML @ Wide Open IV. 500 / 500 SIG BOLUS ONE Rx#:[id number] Oral 480 / 480 240 / 240 Other: # Voids 2 4 Date of Last Bowel Movement 10/31/17 # Bowel Movements 1 Narrative: GENERAL: Well-developed, well-nourished, in no acute distress. alert and orientated HEENT: Head is normocephalic without any lesions or masses noted. Facial features are symmetric. Eyes: Extraocular muscles are intact. Conjunctivae were clear. NECK: Supple without any masses. Trachea midline no deviation. No JVD, CARDIAC: Regular rhythm, regular rate. S1/S2 are heard. No murmurs gallops or rubs. LUNGS: Clear to auscultation bilaterally. No wheeze, rhonchi or rales. No use of accessory muscles on inspiration or expiration. ABDOMEN: Soft, nontender. Nondistended. Bowel sounds heard in all 4 quadrants. No organomegaly or masses. Negative rebound, negative guarding EXTREMITIES: No edema, pulses are equal bilaterally. No cyanosis or clubbing NEUROLOGY: Mood and affect appear appropriate. Cranial nerves II through XII grossly intact. Moving all extremities, speech is clear Results - Labs CBC & Chem 7: 10/31/17 08:22 10/30/17 12:10 Laboratory Results - last 24 hr 10/30/17 10/30/17 10/30/17 17:10 20:15 20:15 CBC w Diff WBC RBC Hgb Hct MCV MCH MCHC RDW Plt Count MPV Neut % (Auto) Lymph % (Auto) [place] % (Auto) Eos % (Auto) Baso % (Auto) Neut # (Auto) Lymph # (Auto) [place] # (Auto) Eos # (Auto) Baso # (Auto) WBC Differential Differential Comment POC Glucose 84 Iron 89 TIBC 209 L % Saturation 42.7 Total Creatine Kinase 62 Troponin I Less than 0.02 L 10/30/17 10/31/17 10/31/17 22:58 03:14 08:15 CBC w Diff WBC RBC Hgb Hct MCV MCH MCHC RDW Plt Count MPV Neut % (Auto) Lymph % (Auto) [place] % (Auto) Eos % (Auto) Baso % (Auto) Neut # (Auto) Lymph # (Auto) [place] # (Auto) Eos # (Auto) Baso # (Auto) WBC Differential Differential Comment POC Glucose 104 88 Iron TIBC % Saturation Total Creatine Kinase 80 Troponin I 0.02 10/31/17 10/31/17 08:22 12:06 CBC w Diff Auto diff final WBC 5.5 RBC 4.04 Hgb 12.9 Hct 38.2 MCV 94.6 MCH 32.0 MCHC 33.8 RDW 13.5 Plt Count 270 MPV 7.6 Neut % (Auto) 46.5 Lymph % (Auto) 40.7 [place] % (Auto) 6.5 Eos % (Auto) 5.7 H Baso % (Auto) 0.6 Neut # (Auto) 2.6 Lymph # (Auto) 2.2 [place] # (Auto) 0.4 Eos # (Auto) 0.3 Baso # (Auto) 0.0 WBC Differential . Differential Comment . POC Glucose 92 Iron TIBC % Saturation Total Creatine Kinase Troponin I - Imaging Impressions Abdomen/Pelvis CT 10/30/17 00:00 CONCLUSION: No acute abnormality demonstrated. Assessment and Plan - Assessment (1) Weakness generalized Code(s): R53.1 - Weakness Status: Acute (2) Abdominal pain Code(s): R10.9 - Unspecified abdominal pain Status: Acute - Plan Diffuse abdominal pain unknown etiology -CT of the abdomen and pelvis was unremarkable for any acute abnormality -Laboratory studies were unremarkable for any liver, pancreatic etiology -Awaiting stool for occult blood, secondary to patient verbalizing dark colored stools -Hemoglobin has remained stable during her stay in the hospital -Iron studies were unremarkable, -Last colonoscopy [address] Sanchez. For now, will hold off on consult to gastroenterology until workup done regarding etiology. Acute kidney injury likely secondary to dehydration. -Continue to follow BMP -Avoid nephrotoxins Atypical chest pain suspect secondary to musculoskeletal etiology -Patient does have reproducible palpable tenderness noted along left sternum -Serial cardiac enzymes and EKGs were performed that ruled patient out for acute coronary event. -Chest x-ray reviewed showing no trauma. Does show some perihilar bibasilar opacities characteristic of scarring and fibrosis. -Unable start patient on aspirin patient is allergic to NSAIDs. Headache, dizziness and vertigo, resolved -Head CT on presentation is reportedly negative. There are chronic changes that are stable. No acute findings. -Meclizine as needed Hypertension, chronic: -Continue home medications will continue home medications Type 2 diabetes mellitus, chronic: -Patient was recently taken off of metformin by her PCP. -Accu-Cheks with sliding scale insulin -Diabetic diet DVT prophylaxis: -Sequential compression devices -Avoid chemical prophylaxis secondary to subjective dark colored stools Discharge Planning: Discharge planning once patient clinically improved. Awaiting stool for occult blood
[2017-10-31 16:24] LABS: Potassium 3.7 meq/L (3.5-5.1)
[2017-10-31 16:26] LABS: Calcium 9.4 mg/dL (8.5-10.1); Carbon Dioxide 26.7 meq/L (21.0-32.0)
[2017-10-31] MEDS: Temazepam 15 MG Capsule PO PRN (21:29)
[2017-11-01 00:03] VITALS: O2SAT 96
[2017-11-01 07:13] VITALS: BP 113/58; PULSE 54; RESP 20; TEMP 96.6
[2017-11-01] MEDS: Sod Chloride 0.9% Inj 1,000 ML IV.CONT SCH (07:59)
[2017-11-01] MEDS: Pantoprazole Sodium 20 MG DR Tablet PO SCH (08:29)
[2017-11-01] MEDS: Insulin NovoLOG Aspart Correctional Sugar Inj SQ SCH (08:29)
[2017-11-01] MEDS: Multivitamin/Minerals Therapeutic Tablet PO SCH (08:29)
[2017-11-01] MEDS: Senna/Docusate Sodium 8.6/50 MG Tablet PO SCH (08:29)
--- NOTE | 2017-11-01 09:32 | P.DS ---
Date of admission: 10/30/17 14:45 Primary care physician: Sharron Kulkarni MD Attending physician on discharge: Lori hSan Anticipated date of discharge: 11/01/17 Brief History from admission: This is a pleasant 82-year-old female patient with a known medical history of GERD, diabetes, hypertension and hyperlipidemia who presented to the ED with multiple complaints. She states that over the past 4 days she has had increasingly generalized weakness, as well as diffuse abdominal pain, nausea as well as left-sided chest pain. She does state that she has been unable to eat secondary to the diffuse abdominal pain for the past few days. Patient does admit to intermittent bouts of constipation and diarrhea with intermittent specks of black in her stool. Last colonoscopy was [address] Gunderson, which was reportedly negative. She does report a history of colon cancer in the past. Patient also has complaints of headaches with shooting pains, intermittent dizziness and vertigo. Head CT on presentation was done and reviewed showing no acute findings, stable chronic changes. She does have a history of chronic back and neck pain including multiple previous surgeries. Patient states she has been having a hard time sleeping, has had to sleep in a recliner to get comfortable secondary to her chronic back and neck pain. She also complains of left-sided chest pain. Upon assessment and palpation, the left chest has obvious pain to palpation. All of these symptoms are likely musculoskeletal in nature. The pain is reportedly worse with different movements as well as changing in position. Patient characterizes the pain as sharp and shooting in nature, rating the pain a 5 out of 10 at its worst on pain scale. Denies ever having a cardiac stress test in the past. It should also be noted that the patient's PCP, Dr. Olmstead, just recently took her off metformin as well as simvastatin for complaints of skin rash. Patient reports that this rash has improved since these medications have been discontinued. DS: Diagnosis - Discharge Diagnosis (1) Weakness generalized Status: Acute (2) Abdominal pain Status: Acute DS: Summary Hospital Course: 82-year-old female diabetes, hypertension, hyperlipidemia, gastroesophageal reflux who presented to the hospital because of multiple complaints and symptoms. Patient had 4 day history of increasing generalized weakness, abdominal pain, nausea, dizziness, chest discomfort. Patient had workup done emergency department was unremarkable. Is recommended by ER physician the patient be admitted for further evaluation and management. Patient had extensive workup done in the hospital with CT the abdomen and pelvis which did not indicate any acute abnormality. Patient stated that she was having dark colored stools. Hemoccult was performed and it was negative. The patient's main complaint was abdominal discomfort in which after she had a bowel movement in the hospital her pain improved immensely. Patient was complaining of left-sided chest pain which was reproducible on palpation. Patient had workup done with serial cardiac enzymes, serial EKGs without any acute findings. It was discussed with the patient that her chest discomfort was likely related to musculoskeletal pain. It did improve on a daily basis. Pain is only present upon palpation. Patient did have some dizziness on presentation. Because he was offered for dizziness and vertigo, however none was required. Patient had no more recurrent nausea or vomiting. Patient did not require any antiemetic during her stay in the hospital. Patient has clinically improved. Her discomfort has resolved. Patient did undergo physical therapy evaluation and is recommend the patient does not require any home physical therapy. Did recommend use of a walker when she gets home. Patient clinically stable this time. We will plan discharge accordingly. - Time Spent with Patient Total time spent providing and/or coordinating discharge services: Greater than 30 minutes - Quality: VTE Deep Vein Thrombosis/Pulmonary Embolism Present on Admission: No Exam Vital signs: Vital Signs 10/31/17 11:29 10/31/17 15:04 10/31/17 20:00 Temperature 96.4 F L 96.6 F L 96.1 F L Pulse Rate 58 L 62 62 Respiratory Rate 20 20 18 Blood Pressure 130/64 138/68 192/86 H Pulse Oximetry 96 96 97 11/01/17 00:00 11/01/17 07:12 Temperature 97 F L 96.6 F L Pulse Rate 60 54 L Respiratory Rate 18 20 Blood Pressure 100/53 L 113/58 L Pulse Oximetry 96 96 Intake & Output 10/31/17 11/01/17 11/01/17 18:59 06:59 18:59 Intake Total 1959 120 / 120 Balance 1959 120 / 120 Weight 63.1 kg Intake: IV 1000 / 1000 NS Inj 1,000 ML @ 84 mls/hr IV. 1000 / 1000 CONT .[id number] GERRY Rx#: [id number] Oral 960 / 960 120 / 120 Other: # Voids 4 3 Date of Last Bowel Movement 10/31/17 # Bowel Movements 3 1 Narrative: GENERAL: Well-developed, well-nourished, in no acute distress. alert and orientated HEENT: Head is normocephalic without any lesions or masses noted. Facial features are symmetric. Eyes: Extraocular muscles are intact. Conjunctivae were clear. NECK: Supple without any masses. Trachea midline no deviation. No JVD, CARDIAC: Regular rhythm, regular rate. S1/S2 are heard. No murmurs gallops or rubs. LUNGS: Clear to auscultation bilaterally. No wheeze, rhonchi or rales. No use of accessory muscles on inspiration or expiration. ABDOMEN: Soft, nontender. Nondistended. Bowel sounds heard in all 4 quadrants. No organomegaly or masses. Negative rebound, negative guarding EXTREMITIES: No edema, pulses are equal bilaterally. No cyanosis or clubbing NEUROLOGY: Mood and affect appear appropriate. Cranial nerves II through XII grossly intact. Moving all extremities, speech is clear Results Procedures completed during hospitalization: None Labs on day of discharge: Labs from last 24 hours 11/01/17 10/31/17 10/31/17 07:39 19:56 16:27 Sodium Potassium Chloride Carbon Dioxide Anion Gap BUN Creatinine Estimated GFR POC Glucose 96 103 88 Random Glucose Calcium 10/31/17 10/31/17 15:25 12:06 Sodium 140 Potassium 3.7 Chloride 106 Carbon Dioxide 26.7 Anion Gap 7 BUN 19 H Creatinine 1.40 H Estimated GFR 36 L POC Glucose 92 Random Glucose 106 Calcium 9.4 - Impressions ITS Impressions Abdomen/Pelvis CT 10/30/17 00:00 CONCLUSION: No acute abnormality demonstrated. Chest X-Ray 10/30/17 12:08 CONCLUSION: 1. Hazy perihilar and bibasilar opacities most characteristic of scarring and/ or fibrosis. 2. No new areas of consolidation to suggest pneumonia. Head CT 10/30/17 12:08 CONCLUSION: 1. 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 2. Nothing acute . Discharge Plan - Discharge Disposition Patient Disposition: 01 Discharge Home - Discharge Condition Condition: Good - Discharge Order Discharge Orders: Discharge Order (Routine); Ordered 11/01/17 Ordered By: Blayne Carpenter - Discharge Details Anticipated Discharge Date: 11/01/17 - Physicians Team Primary Care Provider: Sharron Kulkarni Attending Provider: Lori Torrez
== END 2017-11-01 10:31 | disposition home or self-care (01) ==
LOC: PHED 11:09 → PH3 11:09 → PHEDA 11:09 → PH3 16:12
PROVIDERS: ADMIT Hospitalist; ATTEND Hospitalist
DX: E86.0 Dehydration; R10.84 Generalized abdominal pain; R51 Headache; R07.89 Other chest pain; E11.9 Type 2 diabetes mellitus without complications; G89.29 Other chronic pain; K55.1 Chronic vascular disorders of intestine; R82.99 Other abnormal findings in urine; K21.9 Gastro-esophageal reflux disease without esophagitis; Z85.038 Personal history of other malignant neoplasm of large intestine; I10 Essential (primary) hypertension; R05 Cough; R19.5 Other fecal abnormalities; R11.0 Nausea; R68.83 Chills (without fever); Z85.828 Personal history of other malignant neoplasm of skin; M54.9 Dorsalgia, unspecified; M54.2 Cervicalgia; N17.9 Acute kidney failure, unspecified; R06.00 Dyspnea, unspecified; R53.1 Weakness; Z79.899 Other long term (current) drug therapy; E78.5 Hyperlipidemia, unspecified; R21 Rash and other nonspecific skin eruption